=== PATIENT | male | born 1945 ===

== ENCOUNTER 2017-07-07 13:50 | Inpatient (IN) | payer SELFPAY ==
[~2017-07-07] VITALS: Ht 167.6 cm; Wt 65.0 kg
[2017-07-07] MEDS ORDERED: PIPERACIL-TAZO 3.375 GM PREMIX 50 ML IV STA (14:59)
[2017-07-07] MEDS ORDERED: CIPROFLOXACIN 400 MG PREMIX 200 ML IV ONE (15:00)
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
[2017-07-07] MEDS ORDERED: SODIUM CHLORIDE 0.9% FLUSH 10 ML FLUSH IV FLUSH PRN (15:15)
[2017-07-07] MEDS ORDERED: ONDANSETRON HCL 4 MG/2 ML VIAL IVP PRN (15:15)
[2017-07-07] MEDS ORDERED: Custom Consult Pharmacy 1 EA OTHER SCH (15:15)
[2017-07-07] MEDS ORDERED: Vancomycin Consult Pharmacy 1 EA OTHER SCH ×2 (15:15→20:00)
[2017-07-07] MEDS ORDERED: BISACODYL 10 MG SUPP RECTAL PRN (15:15)
[2017-07-07] MEDS ORDERED: ACETAMINOPHEN 325 MG TAB PO PRN ×2 (15:15)
[2017-07-07] MEDS ORDERED: MORPHINE SULFATE 4 MG/ML INJ IV PUSH PRN (15:15)
[2017-07-07] MEDS ORDERED: NALOXONE HCL 0.4 MG/ML AMP IV PUSH PRN (15:15)
[2017-07-07] MEDS ORDERED: LACTULOSE SYRUP 20 GM/30 ML CUP PO PRN (15:15)
[2017-07-07] MEDS ORDERED: ACETAMINOPHEN/HYDROcodone 325 MG/7.5 MG TAB PO PRN (15:15)
[2017-07-07] MEDS ORDERED: cloNIDine HCL 0.1 MG TAB PO PRN (15:15)
[2017-07-07] MEDS ORDERED: SENNOSIDES 8.6 MG TAB PO PRN (15:15)
[2017-07-07] MEDS ORDERED: hydrALAZINE HCL 20 MG/ML VIAL IV PUSH PRN (15:15)
[2017-07-07] MEDS ORDERED: ATOR40TA16 PO (15:34)
[2017-07-07] MEDS ORDERED: LOSA25TA PO (15:34)
[2017-07-07] MEDS ORDERED: FINA5TAB2 PO (15:35)
[2017-07-07] MEDS ORDERED: TAMS5CAP PO (15:35)
[2017-07-07] MEDS ORDERED: ASPI-110 PO (15:36)
[2017-07-07 16:00] VITALS: BP 162/81; PULSE 84; RESP 20; TEMP 98.4; O2SAT 98
[2017-07-07] MEDS ORDERED: VANCOMYCIN INJ 1,250 MG in SODIUM CHLOR 0.9% 250 ML INJ 250 ML IV ONE (17:00)
[2017-07-07 18:01] LABS: BASOPHIL % 0.4 % (0.0-2.0); EOSINOPHIL % 0.4 % (0.0-4.0); HEMATOCRIT 42.3 % (39.0-51.0); HEMOGLOBIN 14.5 GM/DL (13.0-17.0); LYMPH % 21.3 % (9.0-44.0); LYMPHOCYTE # 1.5 TH/MM3 (1.0-4.8); MEAN CELL VOLUME 90.1 FL (80.0-100.0); MEAN CORPUSCULAR HEMOGLOBIN 30.9 PG (27.0-34.0); MEAN CORPUSCULAR HGB CONC 34.2 % (32.0-36.0); MEAN PLATELET VOLUME 8.3 FL (7.0-11.0); MONO % 7.3 % (0.0-8.0); MONOCYTE # 0.5 TH/MM3 (0-0.9); NEUT % 70.6 % (16.0-70.0); PLATELET COUNT 177 TH/MM3 (150-450); RED CELL DISTRIBUTION WIDTH 13.2 % (11.6-17.2)
[2017-07-07 18:04] LABS: INTERNATIONAL NORMALIZED RATIO 0.9 RATIO; PROTHROMBIN TIME - PATIENT 10.3 SEC (9.8-11.6)
[2017-07-07 18:22] LABS: ALBUMIN 3.3 GM/DL (3.4-5.0); ALT (GPT) 28 U/L (12-78); AST (GOT) 16 U/L (15-37); BICARBONATE 27.1 MEQ/L (21.0-32.0); BLOOD UREA NITROGEN 16 MG/DL (7-18); CALCIUM 8.7 MG/DL (8.5-10.1); CHLORIDE 108 MEQ/L (98-107); CREATININE 1.12 MG/DL (0.60-1.30); GLOMERULAR FILTRATION RATE 64 ML/MIN (>89); GLUCOSE,RANDOM 98 MG/DL (74-106); MAGNESIUM 2.3 MG/DL (1.5-2.5); SODIUM (NA) 142 MEQ/L (136-145)
[2017-07-07 18:24] LABS: ALKALINE PHOSPHATASE 75 U/L (45-117); TOTAL BILIRUBIN ADULT 0.3 MG/DL (0.2-1.0); TOTAL PROTEIN 7.7 GM/DL (6.4-8.2)
[2017-07-07] MEDS ORDERED: GADODIAMIDE PF 287 MG/ML 5 ML VIAL (for RAD MRI) IVCONTRAST ONE (19:49)
--- NOTE | 2017-07-07 19:55 | HHI.PR ---
Addendum to Inpatient Note Additional Information Attempted to see patient at 7:54 pm gone for MRI foot. Continue Zosyn IV Continue Vanco IV Consider Vascular consult given PAD and suspicion of osteomyelitis. d/w FACILITIES ADMINISTRATOR Krunal Desir: pt was on Keflex since yday due to chills. Suggested Blood cultures. Given possibility of bacteremia continue Zosyn IV and Vanco IV Loli Driscoll MD Jul 07, 2017 19:55
--- NOTE | 2017-07-07 19:55 | HHI.PR ---
Addendum to Inpatient Note Additional Information Attempted to see patient at 7:54 pm gone for MRI foot. Continue Zosyn IV Continue Vanco IV Consider Vascular consult given PAD and suspicion of osteomyelitis. d/w LEAD ATHLETE Krunal Desir: pt was on Keflex since yday due to chills. Suggested Blood cultures. Given possibility of bacteremia continue Zosyn IV and Vanco IV Loli Driscoll MD Jul 07, 2017 19:55
--- NOTE | 2017-07-07 19:55 | HHI.PR ---
Addendum to Inpatient Note Additional Information Attempted to see patient at 7:54 pm gone for MRI foot. Continue Zosyn IV Continue Vanco IV Consider Vascular consult given PAD and suspicion of osteomyelitis. d/w ASSISTANT CASE MANAGER Krunal Desir: pt was on Keflex since yday due to chills. Suggested Blood cultures. Given possibility of bacteremia continue Zosyn IV and Vanco IV Loli Driscoll MD Jul 07, 2017 19:55
[2017-07-07 20:00] VITALS: PULSE 67
[2017-07-07 20:33] VITALS: BP 117/77; PULSE 63; RESP 16; TEMP 98.2; O2SAT 98
[2017-07-07] MEDS: TAMSULOSIN HCL 0.4 MG CAP PO SCH (20:40)
[2017-07-07] MEDS: SODIUM CHLORIDE 0.9% FLUSH 10 ML FLUSH IV FLUSH SCH (20:40)
[2017-07-07] MEDS: DOCUSATE SODIUM 50 MG/SENNA 8.6 MG TAB PO SCH (20:40)
--- NOTE | 2017-07-07 22:49 | RADRPT ---
EXAM DATE/TIME: 07/07/2017 19:22 [place] COMPARISON: No previous studies available for comparison. INDICATIONS : Cellulitis. Great toe ulcer. CONTRAST: 13 cc Omniscan (gadodiamide) IV MEDICAL HISTORY : Hypertension. SURGICAL HISTORY : Right leg fracture. ENCOUNTER: Subsequent ACUITY: 2 day PAIN SCORE: 3/10 LOCATION: Right foot. TECHNIQUE: Multiplanar, multisequence MRI examination was performed without contrast and after the intravenous a dministration of gadolinium. FINDINGS: There is prominent marrow edema present involving the great toe proximal and distal phalanx worrisome for involvement with osteomyelitis. There are less prominent signal changes involving the other toes , most conspicuously the distal phalanx of the second digit. Great toe is notable for moderate cellul itic change, primarily medial with peripherally enhancing fluid signal medially and inferiorly which may reflect phlegmonous changes in the subcutaneous tissues. CONCLUSION: Extensive great toe cellulitis and phlegmonous changes primarily anterior and medial. Signal changes in the marrow of the great toe phalanges consistent with osteomyelitis. Milder signal change in the s econd toe distal phalanx. Daniel Pope MD on July 07, 2017 at 22:42 Board Certified Radiologist. This report was verified electronically.
[2017-07-07] MEDS: PIPERACIL-TAZO 4.5 GM PREMIX 100 ML IV SCH (23:20)
[2017-07-07 23:34] VITALS: BP 122/68; PULSE 71; RESP 16; TEMP 98.2; O2SAT 96
[2017-07-08] VITALS (7 sets, daily range): BP systolic 114–133; BP diastolic 71–85; PULSE 66–80; RESP 16–20; TEMP 98–98.6; O2SAT 96–98
[2017-07-08] MEDS: PIPERACIL-TAZO 4.5 GM PREMIX 100 ML IV SCH ×3 (05:26→19:28)
[2017-07-08] MEDS ORDERED: VANCOMYCIN INJ 700 MG in SODIUM CHLOR 0.9% 250 ML INJ 250 ML IV SCH (07:00)
[2017-07-08] MEDS: ATORVASTATIN 40 MG TAB PO SCH ×2 (09:00→11:24)
[2017-07-08] MEDS: FINASTERIDE 5 MG TAB PO SCH (09:38)
[2017-07-08] MEDS: DOCUSATE SODIUM 50 MG/SENNA 8.6 MG TAB PO SCH ×2 (09:38→20:43)
[2017-07-08] MEDS: SODIUM CHLORIDE 0.9% FLUSH 10 ML FLUSH IV FLUSH SCH ×2 (09:41→20:43)
[2017-07-08] MEDS: LOSARTAN 25 MG TAB PO SCH (09:41)
[2017-07-08] MEDS: ASPIRIN EC 81 MG TABEC PO SCH (11:23)
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
--- NOTE | 2017-07-08 12:57 | PD.POD.CON ---
Patient Intake Chief Complaint Discoloration of the right hallux Consult Requested by Dr. Quintero Reason for Consult Evaluation and treatment of right hallux toe Primary Care Physician No Primary Care Physician History of Present Illness Patient is a 71-year-old pleasant gentleman from the [facility] who is visiting the area for her wedding. Patient states he has no feeling in his foot from her prior fracture of his leg. Approximately 1 month ago he developed an open draining area which she's been treating topically with antibiotics. Toe became discolored and worse a few days ago and he presented to [facility] for evaluation and treatment. MRI shows osteomyelitic changes of the hallux. Patient has been seen by vascular for possible thrombus and PVD. Coded Allergies: No Known Allergies (Unverified , 07/07/17) Preferred Language to Discuss: [place] Barriers to Learning: None Teaching Method: Discussion Vital Signs Date Time Temp Pulse Resp B/P (MAP) Pulse Ox O2 Delivery O2 Flow Rate FiO2 07/08/17 08:00 66 07/08/17 08:00 98.0 66 20 131/76 (94) 96 07/08/17 05:18 98.4 74 16 120/71 (87) 98 07/07/17 23:34 98.2 71 16 122/68 (86) 96 07/07/17 20:33 98.2 63 16 117/77 (90) 98 07/07/17 20:00 67 07/07/17 16:00 98.4 84 20 162/81 (108) 98 Pain scale used: 0-10 numeric scale Pain score: 0 Medications Current Medications Ciprofloxacin/ Dextrose 200 ml @ 200 mls/hr STAT ONCE IV Last administered on 07/07/17 16:53; Start 07/07/17 at 15:00; Stop 07/07/17 at 15:59; Status DC Piperacillin Sod/ Tazobactam Sod 50 ml @ 100 mls/hr ONCE STAT IV Last administered on 07/07/17 18:26; Start 07/07/17 at 14:59; Stop 07/07/17 at 15 :28; Status DC Pharmacy Profile Note 0 ml @ 0 mls/hr UNSCH OTHER ; Start 07/07/17 at 15:15; Stop 07/07/17 at 20:46; Status DC Pharmacy Profile Note 0 ml @ 0 mls/hr UNSCH OTHER ; Start 07/07/17 at 15:15 Hydralazine HCl (Apresoline Inj) 10 mg Q6H PRN IV PUSH SBP> OR = 180, DBP> OR = 100; Start 07/07/17 at 15:15 Clonidine (Catapres) 0.1 mg Q6H PRN PO SBP> OR = 180, DBP> OR = 100; Start at 15:15 Sodium Chloride (NS Flush) 2 ml UNSCH PRN IV FLUSH FLUSH AFTER USING IV ACCESS ; Start 07/07/17 at 15:15 Sodium Chloride (NS Flush) 2 ml BID IV FLUSH Last administered on 07/08/17 09 :41; Start 07/07/17 at 21:00 Acetaminophen (Tylenol) 650 mg Q4H PRN PO TEMP > 100.4; Start 07/07/17 at 15: 15 Ondansetron HCl (Zofran Inj) 4 mg Q6H PRN IVP NAUSEA OR VOMITING; Start at 15:15 Acetaminophen (Tylenol) 650 mg Q6H PRN PO PAIN SCALE 1 TO 2; Start 07/07/17 at 15:15 Acetaminophen/ Hydrocodone Bitart ([place] 5-325 Mg) 1 tab Q4H PRN PO PAIN SCALE 3 TO 5; Start 07/07/17 at 15:15 Acetaminophen/ Hydrocodone Bitart ([place] 7.5-325 Mg) 1 tab Q4H PRN PO PAIN SCALE 6 TO 10; Start 07/07/17 at 15:15 Morphine Sulfate (Morphine Inj) 2 mg Q3H PRN IV PUSH BREAKTHROUGH PAIN; Start 07/07/17 at 15:15 Naloxone HCl (Narcan Inj) 0.4 mg UNSCH PRN IV PUSH SEE LABEL COMMENTS; Start 07/07/17 at 15:15 Senna/Docusate Sodium (Bindu-Colace) 1 tab BID PO Last administered on 09:38; Start 07/07/17 at 21:00 Sennosides (Senokot) 17.2 mg Q12H PRN PO Moderate constipation; Start at 15:15 Bisacodyl (Dulcolax Supp) 10 mg DAILY PRN RECTAL SEVERE CONSITIPATION; Start 07/07/17 at 15:15 Lactulose (Lactulose Liq) 30 ml DAILY PRN PO SEVERE CONSITIPATION; Start 07/07 at 15:15 Vancomycin HCl 1250 mg/Sodium Chloride 262.5 ml @ 250 mls/hr ONCE ONCE IV Last administered on 07/07/17 19:11; Start 07/07/17 at 17:00; Stop 07/07/17 at 18:02; Status DC Finasteride (Proscar) 5 mg DAILY PO Last administered on 07/08/17 09:38; Start 07/08/17 at 09:00 Tamsulosin HCl (Flomax) 0.4 mg HS PO Last administered on 07/07/17 20:40; Start 07/07/17 at 21:00 Gadodiamide (Omniscan Pf Inj) 13 ml STK-MED ONCE IVCONTRAST Last administered on 07/07/17 19:49; Start 07/07/17 at 19:49; Stop 07/07/17 at 19:53; Status DC Piperacillin Sod/ Tazobactam Sod 100 ml @ 200 mls/hr Q6HR IV Last administered on 07/08/17 11:22; Start 07/08/17 at 00:00 Pharmacy Profile Note 0 ml @ 0 mls/hr UNSCH OTHER ; Start 07/07/17 at 20:00 Vancomycin HCl 700 mg/Sodium Chloride 257 ml @ 250 mls/hr Q12H IV Last administered on 07/08/17 07:01; Start 07/08/17 at 07:00; Stop 07/08/17 at 11 :04; Status DC Miscellaneous Information SPECIFIC LAB TO BE ... ONCE ONCE .XX ; Start at 14:45; Stop 07/09/17 at 14:46 Aspirin (Ecotrin Ec) 81 mg DAILY PO Last administered on 07/08/17 11:23; Start 07/08/17 at 09:00 Atorvastatin Calcium (Lipitor) 40 mg DAILY PO Last administered on 07/08/17 11:24; Start 07/08/17 at 09:00 Losartan Potassium (Cozaar) 25 mg DAILY PO Last administered on 07/08/17 09: 41; Start 07/08/17 at 09:00 Vancomycin HCl 1000 mg/Sodium Chloride 250 ml @ 250 mls/hr Q12H IV ; Start at 15:00 Past, Family & Social History Past Medical History Cardiovascular: REPORTS HX OF: Hypertension Genitourinary - Male: REPORTS HX OF: Benign prost. hyperplasia Past Surgical History Musculoskeletal: REPORTS HX OF: Other musculoskeletal srg (right leg fracture repair) Review of Systems Constitutional: COMPLAINS OF: Good general health Exam-Podiatry Constitutional General appearance: comfortable Nutritional status: normal Orientation: alert and oriented x3 Dermatological Exam Skin Temp - Right: Cool Skin Texture - Right: Abnormal Skin Elasticity - Right: Abnormal Skin Tugor - Right: Abnormal Hair Growth - Right: Absent Pigmentation - Right: Abnormal Skin Temp - Left: Within Normal Limits Skin Texture - Left: Within Normal Limits Skin Elasticity - Left: Within Normal Limits Skin Tugor - Left: Within Normal Limits Hair Growth - Left: Within Normal Limits Pigmentation - Left: Within Normal Limits Ulcers: Location/Measurements Necrosis and cyanosis of the right hallux consistent with early gangrenous changes. Vascular/Lymphatic Exam R Dorsails Pedis: Palpable L Dorsails Pedis: Palpable R Posterior Tibial: Palpable L Posterior Tibial: Palpable Neurologic Exam Present on right: Anesthesia Muscle Strength Dorsiflexion (Right): Normal Plantarflexion (Right): Normal Inversion (Right): Normal Eversion (Right): Normal Digital (Right): Normal Dorsiflexion (Left): Normal Plantarflexion (Left): Normal Inversion (Left): Normal Eversion (Left): Normal Digital (Left): Normal Foot Range of Motion Dorsiflexion (Right): Normal Plantarflexion (Right): Normal Inversion (Right): Normal Eversion (Right): Normal Digital (Right): Normal Dorsiflexion (Left): Normal Plantarflexion (Left): Normal Inversion (Left): Normal Eversion (Left): Normal Digital (Left): Normal Lab and Radiology Results Laboratory Laboratory Tests Test 07/07/17 17:20 White Blood Count 7.0 TH/MM3 Red Blood Count 4.70 MIL/MM3 Hemoglobin 14.5 GM/DL Hematocrit 42.3 % Mean Corpuscular Volume 90.1 FL Mean Corpuscular Hemoglobin 30.9 PG Mean Corpuscular Hemoglobin Concent 34.2 % Red Cell Distribution Width 13.2 % Platelet Count 177 TH/MM3 Mean Platelet Volume 8.3 FL Neutrophils (%) (Auto) 70.6 % Lymphocytes (%) (Auto) 21.3 % Monocytes (%) (Auto) 7.3 % Eosinophils (%) (Auto) 0.4 % Basophils (%) (Auto) 0.4 % Neutrophils # (Auto) 5.0 TH/MM3 Lymphocytes # (Auto) 1.5 TH/MM3 Monocytes # (Auto) 0.5 TH/MM3 Eosinophils # (Auto) 0.0 TH/MM3 Basophils # (Auto) 0.0 TH/MM3 CBC Comment DIFF FINAL Differential Comment Erythrocyte Sedimentation Rate 31 mm/hr Laboratory Tests Test 07/07/17 17:20 Blood Urea Nitrogen 16 MG/DL Creatinine 1.12 MG/DL Random Glucose 98 MG/DL Total Protein 7.7 GM/DL Albumin 3.3 GM/DL Calcium Level 8.7 MG/DL Magnesium Level 2.3 MG/DL Alkaline Phosphatase 75 U/L Aspartate Amino Transf (AST/SGOT) 16 U/L Alanine Aminotransferase (ALT/SGPT) 28 U/L Total Bilirubin 0.3 MG/DL Sodium Level 142 MEQ/L Potassium Level 4.6 MEQ/L Chloride Level 108 MEQ/L Carbon Dioxide Level 27.1 MEQ/L Anion Gap 7 MEQ/L Estimat Glomerular Filtration Rate 64 ML/MIN C-Reactive Protein 1.40 MG/DL Microbiology Date/Time Source Procedure Growth Status 07/07/17 17:30 Blood Peripheral Aerobic Blood Culture - Preliminary NO GROWTH IN 1 DAY Resulted 07/07/17 17:30 Blood Peripheral Anaerobic Blood Culture - Preliminary NO GROWTH IN 1 DAY Resulted 07/07/17 17:20 Blood Peripheral Aerobic Blood Culture - Preliminary NO GROWTH IN 1 DAY Resulted 07/07/17 17:20 Blood Peripheral Anaerobic Blood Culture - Preliminary NO GROWTH IN 1 DAY Resulted Radiology Last Impressions Foot MRI 07/07/17 0000 Signed Impressions: Service Date/Time: Friday, July 07, 2017 19:22 - CONCLUSION: Extensive great toe cellulitis and phlegmonous changes primarily anterior and medial. Signal changes in the marrow of the great toe phalanges consistent with osteomyelitis. Milder signal change in the second toe distal phalanx. Daniel Pope MD Assessment/Plan Problem List: (1) Osteomyelitis of toe of right foot Status: Acute (2) Cellulitis of great toe of right foot Status: Acute Additional Plans & Procedures PLAN: Scheduled the patient for an amputation of the right hallux for tomorrow morning at 7:30. He wishes to proceed with the planned surgery. Preop orders and consent written. Patient is to have Doppler segmentals as ordered by vascular surgery. Discussed patient with Jack Donald DPM Jul 08, 2017 12:57
--- NOTE | 2017-07-08 13:54 | HHI.PR ---
Subjective Remarks Follow-up foot infection. Patient has no new complaints. Discussed with podiatry Objective Vitals Vital Signs Date Time Temp Pulse Resp B/P (MAP) Pulse Ox O2 Delivery O2 Flow Rate FiO2 07/08/17 10:05 21 07/08/17 08:00 66 07/08/17 08:00 98.0 66 20 131/76 (94) 96 07/08/17 05:18 98.4 74 16 120/71 (87) 98 07/07/17 23:34 98.2 71 16 122/68 (86) 96 07/07/17 20:33 98.2 63 16 117/77 (90) 98 07/07/17 20:00 67 07/07/17 16:00 98.4 84 20 162/81 (108) 98 I/O 07/07/17 07/07/17 07/07/17 07/08/17 07/08/17 07/08/17 07:00 15:00 23:00 07:00 15:00 23:00 Intake Total 500 ml 240 ml Output Total 1050 ml Balance 500 ml -810 ml Intake Oral 240 ml IV Total 500 ml Output Urine Total 1050 ml # Bowel Movements 0 Result Diagram: 07/07/17 1720 07/07/17 1720 Imaging Last Impressions Foot MRI 07/07/17 0000 Signed Impressions: Service Date/Time: Friday, July 07, 2017 19:22 - CONCLUSION: Extensive great toe cellulitis and phlegmonous changes primarily anterior and medial. Signal changes in the marrow of the great toe phalanges consistent with osteomyelitis. Milder signal change in the second toe distal phalanx. Daniel Pope MD Objective Remarks GENERAL: This is a well-nourished, well-developed patient, in no apparent distress. SKIN: Warm and dry. Left Flank maculopapular rash present. CARDIOVASCULAR: Regular rate and rhythm without murmurs, gallops, or rubs. RESPIRATORY: Clear to auscultation. Breath sounds equal bilaterally. No wheezes , rales, or rhonchi. GASTROINTESTINAL: Abdomen soft, non-tender, nondistended. Bowel sounds active 4. No guarding. MUSCULOSKELETAL: Extremities without clubbing, cyanosis. Right great toes edema , erythema, malodorous drainage. Right foot edema +1, erythema present mid foot. Pulses palpable right popliteal right femoral, faint right foot DP. Pulses palpable DP and TP left foot. NEUROLOGICAL: Awake and alert. Cranial nerves II through XII intact. Motor and sensory grossly within normal limits. Normal speech. A/P Problem List: (1) Cellulitis of right foot ICD Code: L03.115 - Cellulitis of right lower limb Status: Acute (2) Cellulitis of great toe of right foot ICD Code: L03.031 - Cellulitis of right toe Status: Acute (3) HTN (hypertension) ICD Code: I10 - Essential (primary) hypertension Status: Chronic (4) HLD (hyperlipidemia) ICD Code: E78.5 - Hyperlipidemia, unspecified Status: Chronic (5) BPH (benign prostatic hyperplasia) ICD Code: N40.0 - Benign prostatic hyperplasia without lower urinary tract symptoms Status: Chronic Assessment and Plan Patient is a 71 y/o male with PMHX of HTN, HLD, BPH who came in as direct admission for Right Toe/ Right foot Cellulitis. Right Foot, Right Hallux/ Great Toe Cellulitis, Abscess and OM of first and second metatarsals with failed outpatient therapy. Sepsis suspect - Blood Cutures NGTD - ct IV antibiotics Zosyn and vancomycin IV - Monitor labs - Pain management with Lortab and IV morphine - Consulted infectious disease and podiatry for surgery pending vascular eval HTN, chronic HLD, chronic -Continue home meds losartan 25 mg daily, atorvastatin 40 mg daily - Monitor BP trend BPH, chronic -Continue home medication finasteride, Flomax DVT prop SCD hold pharmacological prophylaxis for surgical intervention in the morning Pancho Quintero MD Jul 08, 2017 13:54
--- NOTE | 2017-07-08 14:43 | RADRPT ---
EXAM DATE/TIME: 07/08/2017 00:00 [place] COMPARISON: No previous studies available for comparison. INDICATIONS : Right foot cellulitis TECHNIQUE: Four-cuff ankle and brachial pressures were obtained. Pulse cuff waveform tracings of the ankles were recorded, and ankle-brachial indices were calculated. PRESSURES (mmHg): Brachial (arm): Right 110 Left IV SITE Ankle: Right 98 Left 153 JUAN: Right 0.89 Left 113 TBI: Right 0.82 Left 1.03 PULSED CUFF WAVEFORMS: Demonstrate normal amplitude bilaterally. CONCLUSION: 1. Mild claudication range right lower extremity ABIs. Dimitri Melissa MD on July 08, 2017 at 14:24 Board Certified Radiologist. This report was verified electronically.
--- NOTE | 2017-07-08 14:51 | EKG ---
Date Performed: 07/07/2017 Time Performed: 17:09:37 PTAGE: 71 years EKG: Sinus rhythm NORMAL ECG NO PREVIOUS TRACING DOCTOR: Ada Amaya Interpretating Date/Time 07/08/2017 14:46:02
--- NOTE | 2017-07-08 14:51 | EKG ---
Date Performed: 07/07/2017 Time Performed: 17:09:37 PTAGE: 71 years EKG: Sinus rhythm NORMAL ECG NO PREVIOUS TRACING DOCTOR: Ada Amaya Interpretating Date/Time 07/08/2017 14:46:02
--- NOTE | 2017-07-08 14:51 | EKG ---
Date Performed: 07/07/2017 Time Performed: 17:09:37 PTAGE: 71 years EKG: Sinus rhythm NORMAL ECG NO PREVIOUS TRACING DOCTOR: Ada Amaya Interpretating Date/Time 07/08/2017 14:46:02
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
[2017-07-08] MEDS: VANCOMYCIN 1,000 MG/NS 250 ML IV SCH ×2 (15:17)
--- NOTE | 2017-07-08 16:57 | RADRPT ---
EXAM DATE/TIME: 07/08/2017 16:01 [facility] COMPARISON: No previous studies available for comparison. INDICATIONS : Evaluate for pneumonia, pneumothorax, or communicable disease. Pre op foot surgery. MEDICAL HISTORY : None. SURGICAL HISTORY : None. ENCOUNTER: Initial ACUITY: 1 day PAIN SCORE: 0/10 LOCATION: Bilateral chest FINDINGS: The heart is at the upper limits of normal in size. The lungs appear clear. The osseous structures ar e grossly intact. CONCLUSION: 1. No acute cardiopulmonary findings. Amarjit Qureshi MD on July 08, 2017 at 16:51 Board Certified Radiologist. This report was verified electronically.
[2017-07-08 19:46] LABS: PROTHROMBIN TIME - PATIENT 10.7 SEC (9.8-11.6)
[2017-07-08] MEDS: TAMSULOSIN HCL 0.4 MG CAP PO SCH (20:43)
[2017-07-08] MEDS: ACETAMINOPHEN/HYDROcodone 325 MG/5 MG TAB PO PRN (22:37)
[2017-07-09] VITALS (9 sets, daily range): BP systolic 108–130; BP diastolic 60–77; PULSE 57–80; RESP 16–20; TEMP 97.6–98.5; O2SAT 94–97
[2017-07-09] MEDS: PIPERACIL-TAZO 4.5 GM PREMIX 100 ML IV SCH ×4 (00:08→17:25)
[2017-07-09] MEDS: ACETAMINOPHEN/HYDROcodone 325 MG/5 MG TAB PO PRN (00:08)
[2017-07-09] MEDS: VANCOMYCIN 1,000 MG/NS 250 ML IV SCH ×4 (03:59→16:00)
[2017-07-09] MEDS ORDERED: INSULIN HUMAN REGULAR 1,000 UNITS/10 ML VIAL SQ PRN (04:30)
[2017-07-09] MEDS ORDERED: METOPROLOL TARTRATE 25 MG TAB PO PRN (04:30)
[2017-07-09] MEDS ORDERED: CHLORHEXIDINE GLUCONATE 2 % 1 PACK (2 CLOTHS) TOPICAL PRN (04:30)
[2017-07-09] MEDS ORDERED: SODIUM CHLORID 0.9% 500 ML IV PRN (04:30)
[2017-07-09] MEDS ORDERED: LACTATED RINGER'S 1000 ML IV PRN (04:30)
[2017-07-09] MEDS ORDERED: POVIDONE IODINE 5% (ANTISEPSIS KIT) 4 APPLICATIONS EACH NARE PRN (04:30)
[2017-07-09] MEDS ORDERED: LIDOCAINE HCL 1% 50 ML VIAL ONE (07:11)
[2017-07-09] MEDS ORDERED: BUPIVACAINE HCL PF 0.5% 30 ML VIAL ONE (07:11)
[2017-07-09] MEDS ORDERED: DO NOT ADM ANY ANTICOAGULANT DRUGS PRN (08:23)
[2017-07-09] MEDS ORDERED: SODIUM CHLORIDE 0.9% FLUSH 10 ML FLUSH IV FLUSH PRN (08:30)
[2017-07-09] MEDS ORDERED: Post-op Orders (for Pharmacy) MISC XX ONE (08:30)
[2017-07-09] MEDS ORDERED: NALOXONE HCL 0.4 MG/ML AMP IV PUSH PRN (08:30)
--- NOTE | 2017-07-09 08:32 | PD.OP ---
Operative Report Date of Surgery: Jul 09, 2017 Preoperative Diagnosis: (1) Osteomyelitis of toe of right foot Right hallux Postoperative Diagnosis: (1) Osteomyelitis of toe of right foot Right hallux Procedure: Amputation of right hallux and first metatarsal head Anesthesia: General inhalation Surgeon: Jack Ramírez DPM Senior Compensation Analyst(s): None Operation and Findings: Patient was brought to the operating room placed on the operating table in a supine position. A pneumatic ankle cuff was placed around the patient's right ankle after adequate web roll padding. Patient was given general relation anesthesia and the right foot was prepped and draped in the usual sterile manner. After the appropriate timeout was performed and the patient was correctly identified the pneumatic ankle cuff was inflated to 250 mmHg. Total cuff time was 26 minutes. Attention was directed to the right foot which is noted to have gangrenous changes of the right hallux with osteomyelitis on MRI. At this time a 2 fishmouth incisions were made dorsally and plantar at the level of the metatarsal phalangeal joint. Using sharp dissection the hallux was disarticulated at the MPJ and delivered from the wound. The head of the first metatarsal was then freed up and using an oscillating saw the distal portion of the first metatarsal head of the right foot was excised for adequate closure. There is flushed with copious amounts of sterile saline. Subcutaneous tissue was reapproximated and closed with 3-0 Vicryl. Skin edges reapproximated and closed with 3-0 Prolene. Good closure was noted. Steri- Strips were placed across the incision sites. 10 cc of 0.5% Marcaine was infiltrated for postoperative analgesia. Sponge and instrument counts were noted to be correct. The hallux was sent for pathology with the first metatarsal head. Patient tolerated the procedures and anesthesia well and left the OR to PACU in apparent satisfactory condition with all vital signs stable and vascular status intact to the right foot. Jack Ramírez DPM Jul 09, 2017 08:32
[2017-07-09] MEDS ORDERED: HYDROmorphone HCL PF 1 MG/ML VIAL IV PUSH PRN (09:00)
[2017-07-09] MEDS ORDERED: IBUPROFEN 400 MG TAB PO PRN (09:00)
[2017-07-09] MEDS ORDERED: HYDROmorphone HCL 2 MG TAB PO PRN (09:00)
--- NOTE | 2017-07-09 09:48 | RADRPT ---
EXAM DATE/TIME: 07/09/2017 08:37 [facility] COMPARISON: MRI FOOT RIGHT W & W/O CONTRAST, July 07, 2017, 19:22. INDICATIONS : Post operative for amputation. MEDICAL HISTORY : None. SURGICAL HISTORY : None. ENCOUNTER: Initial ACUITY: 1 day PAIN SCORE: Non-responsive. LOCATION: Right foot. FINDINGS: Postoperative changes from amputation of the 1st digit at the level of the diametaphysis of the 1st m etatarsus. There is a well-corticated oval ossific density adjacent to the indication site which marina sures 9 mm which is of uncertain significance, this probably represent a retained sesamoid. No soft tissue gas or radiopaque foreign bodies. Portions of the distal leg are included in lateral projecti on demonstrate coarsened trabecula and deformity of the distal tibia and fibula and probable fusion o f the tibiotalar joint. CONCLUSION: Postoperative 1st digit partial amputation. Meng Mena MD on July 09, 2017 at 9:43 Board Certified Radiologist. This report was verified electronically.
--- NOTE | 2017-07-09 09:48 | RADRPT ---
EXAM DATE/TIME: 07/09/2017 08:37 [facility] COMPARISON: MRI FOOT RIGHT W & W/O CONTRAST, July 07, 2017, 19:22. INDICATIONS : Post operative for amputation. MEDICAL HISTORY : None. SURGICAL HISTORY : None. ENCOUNTER: Initial ACUITY: 1 day PAIN SCORE: Non-responsive. LOCATION: Right foot. FINDINGS: Postoperative changes from amputation of the 1st digit at the level of the diametaphysis of the 1st m etatarsus. There is a well-corticated oval ossific density adjacent to the indication site which marina sures 9 mm which is of uncertain significance, this probably represent a retained sesamoid. No soft tissue gas or radiopaque foreign bodies. Portions of the distal leg are included in lateral projecti on demonstrate coarsened trabecula and deformity of the distal tibia and fibula and probable fusion o f the tibiotalar joint. CONCLUSION: Postoperative 1st digit partial amputation. eMng Mena MD on July 09, 2017 at 9:43 Board Certified Radiologist. This report was verified electronically.
[2017-07-09] MEDS: SODIUM CHLORIDE 0.9% FLUSH 10 ML FLUSH IV FLUSH SCH ×2 (10:26→21:00)
[2017-07-09] MEDS: DOCUSATE SODIUM 50 MG/SENNA 8.6 MG TAB PO SCH ×2 (10:27→21:00)
[2017-07-09] MEDS: ASPIRIN EC 81 MG TABEC PO SCH (10:27)
[2017-07-09] MEDS: ATORVASTATIN 40 MG TAB PO SCH (10:27)
[2017-07-09] MEDS: FINASTERIDE 5 MG TAB PO SCH (10:27)
[2017-07-09] MEDS: LOSARTAN 25 MG TAB PO SCH (10:27)
--- NOTE | 2017-07-09 11:41 | HHI.PR ---
Subjective Remarks Follow-up foot infection. Tolerated surgery. Denies pain. Discussed with RN and ID Objective Vitals Vital Signs Date Time Temp Pulse Resp B/P (MAP) Pulse Ox O2 Delivery O2 Flow Rate FiO2 07/09/17 09:30 62 07/09/17 09:00 97.8 70 14 117/70 (86) 99 Room Air 07/09/17 08:45 68 20 112/66 (81) 98 07/09/17 08:30 57 8 101/60 (74) 96 Nasal Cannula 2 07/09/17 08:25 97.6 61 8 97/61 (73) 97 Nasal Cannula 2 07/09/17 08:00 97.7 69 20 114/68 (83) 96 07/09/17 04:40 97.8 62 16 108/65 (79) 94 07/09/17 04:00 Room Air 07/08/17 23:25 Room Air 07/08/17 23:25 98.4 77 16 114/74 (87) 97 07/08/17 20:00 77 07/08/17 19:47 Room Air 07/08/17 19:47 98.6 73 16 127/85 (99) 96 07/08/17 16:00 98.6 80 20 126/74 (91) 96 07/08/17 12:00 98.5 76 20 133/82 (99) 96 I/O 07/08/17 07/08/17 07/08/17 07/09/17 07/09/17 07/09/17 07:00 15:00 23:00 07:00 15:00 23:00 Intake Total 240 ml 480 ml 1050 ml 500 ml Output Total 1050 ml 500 ml 10 ml Balance -810 ml 480 ml 550 ml 490 ml Intake Oral 240 ml 480 ml 600 ml IV Total 450 ml 500 ml Output Urine Total 1050 ml 500 ml Estimated Blood Loss 10 ml # Voids 3 # Bowel Movements 0 1 1 Result Diagram: 07/07/17 1720 07/07/17 172 Imaging Last Impressions Foot X-Ray 07/09/17 0000 Signed Impressions: Service Date/Time: Sunday, July 09, 2017 08:37 - CONCLUSION: Postoperative 1st digit partial amputation. Meng Mena MD Chest X-Ray 07/08/17 0000 Signed Impressions: Service Date/Time: June 16:01 - CONCLUSION: 1. No acute cardiopulmonary findings. Amarjit Qureshi MD Foot MRI 07/07/17 0000 Signed Impressions: Service Date/Time: Friday, July 07, 2017 19:22 - CONCLUSION: Extensive great toe cellulitis and phlegmonous changes primarily anterior and medial. Signal changes in the marrow of the great toe phalanges consistent with osteomyelitis. Milder signal change in the second toe distal phalanx. Daniel Pope MD Objective Remarks GENERAL: This is a well-nourished, well-developed patient, in no apparent distress. SKIN: Warm and dry. Left Flank maculopapular rash present. CARDIOVASCULAR: Regular rate and rhythm without murmurs, gallops, or rubs. RESPIRATORY: Clear to auscultation. Breath sounds equal bilaterally. No wheezes , rales, or rhonchi. GASTROINTESTINAL: Abdomen soft, non-tender, nondistended. Bowel sounds active 4. No guarding. MUSCULOSKELETAL: Extremities without clubbing, cyanosis. Right foot with dry dressing NEUROLOGICAL: Awake and alert. Cranial nerves II through XII intact. Motor and sensory grossly within normal limits. Normal speech. Procedures Amputation of the right great toe and first metatarsal A/P Problem List: (1) Cellulitis of right foot ICD Code: L03.115 - Cellulitis of right lower limb Status: Acute (2) Cellulitis of great toe of right foot ICD Code: L03.031 - Cellulitis of right toe Status: Acute (3) HTN (hypertension) ICD Code: I10 - Essential (primary) hypertension Status: Chronic (4) HLD (hyperlipidemia) ICD Code: E78.5 - Hyperlipidemia, unspecified Status: Chronic (5) BPH (benign prostatic hyperplasia) ICD Code: N40.0 - Benign prostatic hyperplasia without lower urinary tract symptoms Status: Chronic Assessment and Plan Patient is a 71 y/o male with PMHX of HTN, HLD, BPH who came in as direct admission for Right Toe/ Right foot Cellulitis. Right Foot, Right Hallux/ Great Toe Cellulitis, Abscess and OM of first and second metatarsals with failed outpatient therapy. Sepsis suspect - Blood Cutures NGTD - ct IV antibiotics Zosyn and vancomycin IV - Monitor labs - Pain management with Lortab and IV morphine - Status post amputation of the right great toe and first metatarsal. Postoperative wound care. Follow up pathology HTN, chronic HLD, chronic -Continue home meds losartan 25 mg daily, atorvastatin 40 mg daily - Monitor BP trend BPH, chronic -Continue home medication finasteride, Flomax DVT prop SCD start pharmacological prophylaxis in the morning if stable Pancho Quintero MD Jul 09, 2017 11:41
[2017-07-09] MEDS ORDERED: LIDOCAINE HCL 1% PF 5 ML AMPULE OTHER ONE (12:00)
[2017-07-09] MEDS ORDERED: PHENYLEPH/NS 1000 MCG/10 ML SYR IV ONE (12:00)
[2017-07-09] MEDS ORDERED: MIDAZOLAM HCL 2 MG/2 ML VIAL IV ONE (12:00)
[2017-07-09] MEDS ORDERED: PROPOFOL 200 MG/20 ML AMP IV ONE (12:00)
[2017-07-09] MEDS ORDERED: VECURONIUM BROMIDE 20 MG VIAL IV ONE (12:00)
[2017-07-09] MEDS ORDERED: PHARMACY ORDERED LAB ONE (14:45)
--- NOTE | 2017-07-09 15:59 | HHI.PR ---
Addendum to Inpatient Note Addendum Reason: Additional Documentation Additional Information d/w : toe resected beyond margin of infection with no suspicion of residual infection. Ok to treat with oral. Recommend Augmentin 500 or 875 mg po tid for 10 additional days. to examine wound in am. Will sign off please call back if any change in clinical condition or questions or path positive for osteomyelitis on outer margin close to the foot. Loli Driscoll MD Jul 09, 2017 15:59
[2017-07-09] MEDS: TAMSULOSIN HCL 0.4 MG CAP PO SCH (21:21)
[2017-07-10] VITALS (8 sets, daily range): BP systolic 124–154; BP diastolic 67–98; PULSE 65–101; RESP 16–20; TEMP 97.6–99.3; O2SAT 95–97
[2017-07-10] MEDS: PIPERACIL-TAZO 4.5 GM PREMIX 100 ML IV SCH ×4 (00:07→17:13)
[2017-07-10] MEDS: VANCOMYCIN 1,000 MG/NS 250 ML IV SCH ×4 (02:36→15:42)
[2017-07-10] MEDS: ACETAMINOPHEN/HYDROcodone 325 MG/5 MG TAB PO PRN ×3 (04:45→20:28)
[2017-07-10] MEDS: DOCUSATE SODIUM 50 MG/SENNA 8.6 MG TAB PO SCH (09:00)
[2017-07-10] MEDS: ASPIRIN EC 81 MG TABEC PO SCH (09:39)
[2017-07-10] MEDS: SODIUM CHLORIDE 0.9% FLUSH 10 ML FLUSH IV FLUSH SCH ×2 (09:39→20:27)
[2017-07-10] MEDS: FINASTERIDE 5 MG TAB PO SCH (09:40)
[2017-07-10] MEDS: LOSARTAN 25 MG TAB PO SCH (09:41)
[2017-07-10] MEDS: ATORVASTATIN 40 MG TAB PO SCH (09:41)
--- NOTE | 2017-07-10 10:29 | PD.POD ---
Subjective Podiatric Problems Status post right hallux amputation Pain scale used: 0-10 numeric scale Pain score: 1 Remarks 71-year-old male visiting from the [facility] who developed a wound and cyanosis of the right hallux. MRI showed osteomyelitic changes. He underwent an amputation of the right hallux and partial first met head for clear margins. Patient is without complaints. Has only minimal discomfort. Past Med/Surg/Social History Past Medical History PFS Reviewed: Yes Cardiovascular: REPORTS HX OF: Hypertension Genitourinary - male: REPORTS HX OF: Benign prost. hyperplasia Past Surgical History Musculoskeletal: REPORTS HX OF: Other musculoskeletal srg (right leg fracture repair) Social History Smoking Status: Never Smoker Review of Systems Notes No changes in his 14 point review of systems exam since his original visit with the exception of the surgery Constitutional: COMPLAINS OF: Good general health Cardiovascular: COMPLAINS OF: Hx hypertension Objective Vital Signs Vital Signs Date Time Temp Pulse Resp B/P (MAP) Pulse Ox O2 Delivery O2 Flow Rate FiO2 07/10/17 08:00 97.9 68 19 124/69 (87) 97 07/10/17 04:32 99.3 73 16 129/67 (87) 95 07/09/17 23:38 98.4 80 16 128/60 (82) 95 07/09/17 21:25 Room Air 07/09/17 20:42 97.6 63 16 130/77 (94) 97 07/09/17 20:00 57 07/09/17 17:57 95 21 07/09/17 16:00 Room Air 07/09/17 16:00 98.5 68 20 126/66 (86) 94 07/09/17 12:00 97.7 77 20 121/72 (88) 95 07/09/17 12:00 Room Air Coded Allergies: No Known Allergies (Unverified , 07/07/17) Medications and IVs Current Medications Ciprofloxacin/ Dextrose 200 ml @ 200 mls/hr STAT ONCE IV Last administered on 07/07/17 16:53; Start 07/07/17 at 15:00; Stop 07/07/17 at 15:59; Status DC Piperacillin Sod/ Tazobactam Sod 50 ml @ 100 mls/hr ONCE STAT IV Last administered on 07/07/17 18:26; Start 07/07/17 at 14:59; Stop 07/07/17 at 15 :28; Status DC Pharmacy Profile Note 0 ml @ 0 mls/hr UNSCH OTHER ; Start 07/07/17 at 15:15; Stop 07/07/17 at 20:46; Status DC Pharmacy Profile Note 0 ml @ 0 mls/hr UNSCH OTHER ; Start 07/07/17 at 15:15 Hydralazine HCl (Apresoline Inj) 10 mg Q6H PRN IV PUSH SBP> OR = 180, DBP> OR = 100; Start 07/07/17 at 15:15 Clonidine (Catapres) 0.1 mg Q6H PRN PO SBP> OR = 180, DBP> OR = 100; Start at 15:15 Sodium Chloride (NS Flush) 2 ml UNSCH PRN IV FLUSH FLUSH AFTER USING IV ACCESS ; Start 07/07/17 at 15:15; Stop 07/09/17 at 08:34; Status DC Sodium Chloride (NS Flush) 2 ml BID IV FLUSH Last administered on 07/08/17t 20 :43; Start 07/07/17 at 21:00; Stop 07/09/17 at 08:34; Status DC Acetaminophen (Tylenol) 650 mg Q4H PRN PO TEMP > 100.4; Start 07/07/17 at 15: 15 Ondansetron HCl (Zofran Inj) 4 mg Q6H PRN IVP NAUSEA OR VOMITING; Start at 15:15 Acetaminophen (Tylenol) 650 mg Q6H PRN PO PAIN SCALE 1 TO 2; Start 07/07/17 at 15:15; Stop 07/09/17 at 08:38; Status DC Acetaminophen/ Hydrocodone Bitart ([place] 5-325 Mg) 1 tab Q4H PRN PO PAIN SCALE 3 TO 5 Last administered on 07/09/17 00:08; Start 07/07/17 at 15:15; Stop 07/09/17 at 08:32; Status DC Acetaminophen/ Hydrocodone Bitart ([place] 7.5-325 Mg) 1 tab Q4H PRN PO PAIN SCALE 6 TO 10; Start 07/07/17 at 15:15; Stop 07/09/17 at 08:37; Status DC Morphine Sulfate (Morphine Inj) 2 mg Q3H PRN IV PUSH BREAKTHROUGH PAIN; Start 07/07/17 at 15:15; Stop 07/09/17 at 08:39; Status DC Naloxone HCl (Narcan Inj) 0.4 mg UNSCH PRN IV PUSH SEE LABEL COMMENTS; Start 07/07/17 at 15:15; Stop 07/09/17 at 08:33; Status DC Senna/Docusate Sodium (Bindu-Colace) 1 tab BID PO Last administered on 10:27; Start 07/07/17 at 21:00 Sennosides (Senokot) 17.2 mg Q12H PRN PO Moderate constipation; Start at 15:15 Bisacodyl (Dulcolax Supp) 10 mg DAILY PRN RECTAL SEVERE CONSITIPATION; Start 07/07/17 at 15:15 Lactulose (Lactulose Liq) 30 ml DAILY PRN PO SEVERE CONSITIPATION; Start 07/07 at 15:15 Vancomycin HCl 1250 mg/Sodium Chloride 262.5 ml @ 250 mls/hr ONCE ONCE IV Last administered on 07/07/17 19:11; Start 07/07/17 at 17:00; Stop 07/07/17 at 18:02; Status DC Finasteride (Proscar) 5 mg DAILY PO Last administered on 07/10/17 09:40; Start 07/08/17 at 09:00 Tamsulosin HCl (Flomax) 0.4 mg HS PO Last administered on 07/09/17 21:21; Start 07/07/17 at 21:00 Gadodiamide (Omniscan Pf Inj) 13 ml STK-MED ONCE IVCONTRAST Last administered on 07/07/17 19:49; Start 07/07/17 at 19:49; Stop 07/07/17 at 19:53; Status DC Piperacillin Sod/ Tazobactam Sod 100 ml @ 200 mls/hr Q6HR IV Last administered on 07/10/17 05:14; Start 07/08/17 at 00:00 Pharmacy Profile Note 0 ml @ 0 mls/hr UNSCH OTHER ; Start 07/07/17 at 20:00 Vancomycin HCl 700 mg/Sodium Chloride 257 ml @ 250 mls/hr Q12H IV Last administered on 07/08/17 07:01; Start 07/08/17 at 07:00; Stop 07/08/17 at 11 :04; Status DC Miscellaneous Information SPECIFIC LAB TO BE ... ONCE ONCE .XX ; Start at 14:45; Stop 07/09/17 at 14:46; Status DC Aspirin (Ecotrin Ec) 81 mg DAILY PO Last administered on 07/10/17 09:39; Start 07/08/17 at 09:00 Atorvastatin Calcium (Lipitor) 40 mg DAILY PO Last administered on 07/10/17 09:41; Start 07/08/17 at 09:00 Losartan Potassium (Cozaar) 25 mg DAILY PO Last administered on 07/10/17 09: 41; Start 07/08/17 at 09:00 Vancomycin HCl 1000 mg/Sodium Chloride 250 ml @ 250 mls/hr Q12H IV Last administered on 07/10/17 02:36; Start 07/08/17 at 15:00 Lactated Ringer's 1,000 ml @ 30 mls/hr Q24H PRN IV SEE LABEL COMMENTS Last administered on 07/09/17 07:00; Start 07/09/17 at 04:30; Stop 07/12/17 at 04 :29 Sodium Chloride 500 ml @ 30 mls/hr [id number] PRN IV SEE LABEL COMMENTS; Start at 04:30; Stop 07/12/17 at 04:29 Metoprolol Tartrate (Lopressor) 25 mg WEIGHT LOSS COUNSELOR PRN PO SEE LABEL COMMENTS; Start 07/09/17 at 04:30; Stop 07/12/17 at 04:29 Povidone Iodine (Betadine 5% Antisepsis Kit) 1 applic WEIGHT LOSS COUNSELOR PRN EACH NARE SEE LABEL COMMENTS; Start 07/09/17 at 04:30; Stop 07/12/17 at 04:29 Chlorhexidine Gluconate (Chlorhexidine 2% Cloth) 3 pack WEIGHT LOSS COUNSELOR PRN TOPICAL SEE LABEL COMMENTS; Start 07/09/17 at 04:30; Stop 07/12/17 at 04:29 Insulin Human Regular (NovoLIN R INJ) See Protocol Table ... WEIGHT LOSS COUNSELOR PRN SQ SEE PROTOCOL TABLE; Start 07/09/17 at 04:30; Stop 07/12/17 at 04:29 Bupivacaine HCl (Marcaine Pf 0.5% Inj) 30 ml STK-MED ONCE .ROUTE Last administered on 07/09/17 07:46; Start 07/09/17 at 07:11; Stop 07/09/17 at 07 :12; Status DC Lidocaine HCl (Xylocaine 1% Inj (50 ml)) 50 ml STK-MED ONCE .ROUTE ; Start at 07:11; Stop 07/09/17 at 07:12; Status DC Sodium Chloride (NS Flush) 2 ml UNSCH PRN IV FLUSH FLUSH AFTER USING IV ACCESS ; Start 07/09/17 at 08:30 Sodium Chloride (NS Flush) 2 ml BID IV FLUSH Last administered on 07/10/17 09 :39; Start 07/09/17 at 09:00 Miscellaneous Information (Post-op Orders (for Pharmacy)) STAT ONCE XX ; Start 07/09/17 at 08:30; Stop 07/09/17 at 08:37; Status DC Ibuprofen (Motrin) 400 mg Q6H PRN PO PAIN SCALE 1 TO 2; Start 07/09/17 at 09: 00 Acetaminophen/ Hydrocodone Bitart ([place] 5-325 Mg) 1 tab Q4H PRN PO PAIN SCALE 3 TO 5 Last administered on 07/10/17 04:45; Start 07/09/17 at 09:00 Hydromorphone HCl (Dilaudid Pf Inj) 1 mg Q3H PRN IV PUSH BREAKTHROUGH PAIN; Start 07/09/17 at 09:00 Hydromorphone HCl (Dilaudid) 2 mg Q4H PRN PO PAIN SCALE 6 TO 10; Start at 09:00 Naloxone HCl (Narcan Inj) 0.4 mg UNSCH PRN IV PUSH SEE LABEL COMMENTS; Start 07/09/17 at 08:30 Miscellaneous Information ALL NURSING DEPARTME... UNSCH PRN .XX SEE LABEL COMMENTS; Start 07/09/17 at 08:23; Stop 07/10/17 at 08:22; Status DC Other Results Microbiology Date/Time Source Procedure Growth Status 07/07/17 17:30 Blood Peripheral Aerobic Blood Culture - Preliminary NO GROWTH IN 2 DAYS Resulted 07/07/17 17:30 Blood Peripheral Anaerobic Blood Culture - Preliminary NO GROWTH IN 2 DAYS Resulted 07/07/17 17:20 Blood Peripheral Aerobic Blood Culture - Preliminary NO GROWTH IN 2 DAYS Resulted 07/07/17 17:20 Blood Peripheral Anaerobic Blood Culture - Preliminary NO GROWTH IN 2 DAYS Resulted Exam-Podiatry Constitutional General appearance: comfortable Nutritional status: normal Orientation: alert and oriented x3 Dermatological Exam Skin Temp - Right: Within Normal Limits Skin Texture - Right: Within Normal Limits Skin Elasticity - Right: Within Normal Limits Skin Tugor - Right: Within Normal Limits Hair Growth - Right: Within Normal Limits Pigmentation - Right: Within Normal Limits Skin Temp - Left: Within Normal Limits Skin Texture - Left: Within Normal Limits Skin Elasticity - Left: Within Normal Limits Skin Tugor - Left: Within Normal Limits Hair Growth - Left: Within Normal Limits Pigmentation - Left: Within Normal Limits Other: Scars, Surgery,Injury Dressing to right foot is intact dry. Minimal bleeding seen on the bandage. Vascular/Lymphatic Exam R Dorsails Pedis: Palpable L Dorsails Pedis: Palpable R Posterior Tibial: Palpable L Posterior Tibial: Palpable Neurologic Exam Present on right: Paraesthesia Musculoskeletal Exam Details Right hallux amputation Muscle Strength Dorsiflexion (Right): Normal Plantarflexion (Right): Normal Inversion (Right): Normal Eversion (Right): Normal Digital (Right): Normal Dorsiflexion (Left): Normal Plantarflexion (Left): Normal Inversion (Left): Normal Eversion (Left): Normal Digital (Left): Normal Foot Range of Motion Dorsiflexion (Right): Normal Plantarflexion (Right): Normal Inversion (Right): Normal Eversion (Right): Normal Digital (Right): Normal Dorsiflexion (Left): Normal Plantarflexion (Left): Normal Inversion (Left): Normal Eversion (Left): Normal Digital (Left): Normal Assessment & Plan Diagnosis: (1) Osteomyelitis of toe of right foot ICD Codes: M86.9 - Osteomyelitis, unspecified Status: Resolved (2) Cellulitis of great toe of right foot ICD Codes: L03.031 - Cellulitis of right toe Status: Resolved A/P PLAN: Patient may get out of bed to the bathroom the postop shoe. I will change his dressing tomorrow. If incision site looks good we can be discharged tomorrow or Wednesday when cleared by medicine. Discharge on oral antibiotics of Augmentin per ID. Follow-up in my office next week. Patient states she will stay in [facility] for the next few weeks for postoperative care. Jack Ramírez DPM Jul 10, 2017 10:29
--- NOTE | 2017-07-10 10:29 | PD.POD ---
Subjective Podiatric Problems Status post right hallux amputation Pain scale used: 0-10 numeric scale Pain score: 1 Remarks 71-year-old male visiting from the [facility] who developed a wound and cyanosis of the right hallux. MRI showed osteomyelitic changes. He underwent an amputation of the right hallux and partial first met head for clear margins. Patient is without complaints. Has only minimal discomfort. Past Med/Surg/Social History Past Medical History PFS Reviewed: Yes Cardiovascular: REPORTS HX OF: Hypertension Genitourinary - male: REPORTS HX OF: Benign prost. hyperplasia Past Surgical History Musculoskeletal: REPORTS HX OF: Other musculoskeletal srg (right leg fracture repair) Social History Smoking Status: Never Smoker Review of Systems Notes No changes in his 14 point review of systems exam since his original visit with the exception of the surgery Constitutional: COMPLAINS OF: Good general health Cardiovascular: COMPLAINS OF: Hx hypertension Objective Vital Signs Vital Signs Date Time Temp Pulse Resp B/P (MAP) Pulse Ox O2 Delivery O2 Flow Rate FiO2 07/10/17 08:00 97.9 68 19 124/69 (87) 97 07/10/17 04:32 99.3 73 16 129/67 (87) 95 07/09/17 23:38 98.4 80 16 128/60 (82) 95 07/09/17 21:25 Room Air 07/09/17 20:42 97.6 63 16 130/77 (94) 97 07/09/17 20:00 57 07/09/17 17:57 95 21 07/09/17 16:00 Room Air 07/09/17 16:00 98.5 68 20 126/66 (86) 94 07/09/17 12:00 97.7 77 20 121/72 (88) 95 07/09/17 12:00 Room Air Coded Allergies: No Known Allergies (Unverified , 07/07/17) Medications and IVs Current Medications Ciprofloxacin/ Dextrose 200 ml @ 200 mls/hr STAT ONCE IV Last administered on 07/07/17 16:53; Start 07/07/17 at 15:00; Stop 07/07/17 at 15:59; Status DC Piperacillin Sod/ Tazobactam Sod 50 ml @ 100 mls/hr ONCE STAT IV Last administered on 07/07/17 18:26; Start 07/07/17 at 14:59; Stop 07/07/17 at 15 :28; Status DC Pharmacy Profile Note 0 ml @ 0 mls/hr UNSCH OTHER ; Start 07/07/17 at 15:15; Stop 07/07/17 at 20:46; Status DC Pharmacy Profile Note 0 ml @ 0 mls/hr UNSCH OTHER ; Start 07/07/17 at 15:15 Hydralazine HCl (Apresoline Inj) 10 mg Q6H PRN IV PUSH SBP> OR = 180, DBP> OR = 100; Start 07/07/17 at 15:15 Clonidine (Catapres) 0.1 mg Q6H PRN PO SBP> OR = 180, DBP> OR = 100; Start at 15:15 Sodium Chloride (NS Flush) 2 ml UNSCH PRN IV FLUSH FLUSH AFTER USING IV ACCESS ; Start 07/07/17 at 15:15; Stop 07/09/17 at 08:34; Status DC Sodium Chloride (NS Flush) 2 ml BID IV FLUSH Last administered on 07/08/17t 20 :43; Start 07/07/17 at 21:00; Stop 07/09/17 at 08:34; Status DC Acetaminophen (Tylenol) 650 mg Q4H PRN PO TEMP > 100.4; Start 07/07/17 at 15: 15 Ondansetron HCl (Zofran Inj) 4 mg Q6H PRN IVP NAUSEA OR VOMITING; Start at 15:15 Acetaminophen (Tylenol) 650 mg Q6H PRN PO PAIN SCALE 1 TO 2; Start 07/07/17 at 15:15; Stop 07/09/17 at 08:38; Status DC Acetaminophen/ Hydrocodone Bitart ([place] 5-325 Mg) 1 tab Q4H PRN PO PAIN SCALE 3 TO 5 Last administered on 07/09/17 00:08; Start 07/07/17 at 15:15; Stop 07/09/17 at 08:32; Status DC Acetaminophen/ Hydrocodone Bitart ([place] 7.5-325 Mg) 1 tab Q4H PRN PO PAIN SCALE 6 TO 10; Start 07/07/17 at 15:15; Stop 07/09/17 at 08:37; Status DC Morphine Sulfate (Morphine Inj) 2 mg Q3H PRN IV PUSH BREAKTHROUGH PAIN; Start 07/07/17 at 15:15; Stop 07/09/17 at 08:39; Status DC Naloxone HCl (Narcan Inj) 0.4 mg UNSCH PRN IV PUSH SEE LABEL COMMENTS; Start 07/07/17 at 15:15; Stop 07/09/17 at 08:33; Status DC Senna/Docusate Sodium (Bindu-Colace) 1 tab BID PO Last administered on 10:27; Start 07/07/17 at 21:00 Sennosides (Senokot) 17.2 mg Q12H PRN PO Moderate constipation; Start at 15:15 Bisacodyl (Dulcolax Supp) 10 mg DAILY PRN RECTAL SEVERE CONSITIPATION; Start 07/07/17 at 15:15 Lactulose (Lactulose Liq) 30 ml DAILY PRN PO SEVERE CONSITIPATION; Start 07/07 at 15:15 Vancomycin HCl 1250 mg/Sodium Chloride 262.5 ml @ 250 mls/hr ONCE ONCE IV Last administered on 07/07/17 19:11; Start 07/07/17 at 17:00; Stop 07/07/17 at 18:02; Status DC Finasteride (Proscar) 5 mg DAILY PO Last administered on 07/10/17 09:40; Start 07/08/17 at 09:00 Tamsulosin HCl (Flomax) 0.4 mg HS PO Last administered on 07/09/17 21:21; Start 07/07/17 at 21:00 Gadodiamide (Omniscan Pf Inj) 13 ml STK-MED ONCE IVCONTRAST Last administered on 07/07/17 19:49; Start 07/07/17 at 19:49; Stop 07/07/17 at 19:53; Status DC Piperacillin Sod/ Tazobactam Sod 100 ml @ 200 mls/hr Q6HR IV Last administered on 07/10/17 05:14; Start 07/08/17 at 00:00 Pharmacy Profile Note 0 ml @ 0 mls/hr UNSCH OTHER ; Start 07/07/17 at 20:00 Vancomycin HCl 700 mg/Sodium Chloride 257 ml @ 250 mls/hr Q12H IV Last administered on 07/08/17 07:01; Start 07/08/17 at 07:00; Stop 07/08/17 at 11 :04; Status DC Miscellaneous Information SPECIFIC LAB TO BE ... ONCE ONCE .XX ; Start at 14:45; Stop 07/09/17 at 14:46; Status DC Aspirin (Ecotrin Ec) 81 mg DAILY PO Last administered on 07/10/17 09:39; Start 07/08/17 at 09:00 Atorvastatin Calcium (Lipitor) 40 mg DAILY PO Last administered on 07/10/17 09:41; Start 07/08/17 at 09:00 Losartan Potassium (Cozaar) 25 mg DAILY PO Last administered on 07/10/17 09: 41; Start 07/08/17 at 09:00 Vancomycin HCl 1000 mg/Sodium Chloride 250 ml @ 250 mls/hr Q12H IV Last administered on 07/10/17 02:36; Start 07/08/17 at 15:00 Lactated Ringer's 1,000 ml @ 30 mls/hr Q24H PRN IV SEE LABEL COMMENTS Last administered on 07/09/17 07:00; Start 07/09/17 at 04:30; Stop 07/12/17 at 04 :29 Sodium Chloride 500 ml @ 30 mls/hr [id number] PRN IV SEE LABEL COMMENTS; Start at 04:30; Stop 07/12/17 at 04:29 Metoprolol Tartrate (Lopressor) 25 mg HEALTH AND HUMAN PERFORMANCE PROFESSOR PRN PO SEE LABEL COMMENTS; Start 07/09/17 at 04:30; Stop 07/12/17 at 04:29 Povidone Iodine (Betadine 5% Antisepsis Kit) 1 applic HEALTH AND HUMAN PERFORMANCE PROFESSOR PRN EACH NARE SEE LABEL COMMENTS; Start 07/09/17 at 04:30; Stop 07/12/17 at 04:29 Chlorhexidine Gluconate (Chlorhexidine 2% Cloth) 3 pack HEALTH AND HUMAN PERFORMANCE PROFESSOR PRN TOPICAL SEE LABEL COMMENTS; Start 07/09/17 at 04:30; Stop 07/12/17 at 04:29 Insulin Human Regular (NovoLIN R INJ) See Protocol Table ... HEALTH AND HUMAN PERFORMANCE PROFESSOR PRN SQ SEE PROTOCOL TABLE; Start 07/09/17 at 04:30; Stop 07/12/17 at 04:29 Bupivacaine HCl (Marcaine Pf 0.5% Inj) 30 ml STK-MED ONCE .ROUTE Last administered on 07/09/17 07:46; Start 07/09/17 at 07:11; Stop 07/09/17 at 07 :12; Status DC Lidocaine HCl (Xylocaine 1% Inj (50 ml)) 50 ml STK-MED ONCE .ROUTE ; Start at 07:11; Stop 07/09/17 at 07:12; Status DC Sodium Chloride (NS Flush) 2 ml UNSCH PRN IV FLUSH FLUSH AFTER USING IV ACCESS ; Start 07/09/17 at 08:30 Sodium Chloride (NS Flush) 2 ml BID IV FLUSH Last administered on 07/10/17 09 :39; Start 07/09/17 at 09:00 Miscellaneous Information (Post-op Orders (for Pharmacy)) STAT ONCE XX ; Start 07/09/17 at 08:30; Stop 07/09/17 at 08:37; Status DC Ibuprofen (Motrin) 400 mg Q6H PRN PO PAIN SCALE 1 TO 2; Start 07/09/17 at 09: 00 Acetaminophen/ Hydrocodone Bitart ([place] 5-325 Mg) 1 tab Q4H PRN PO PAIN SCALE 3 TO 5 Last administered on 07/10/17 04:45; Start 07/09/17 at 09:00 Hydromorphone HCl (Dilaudid Pf Inj) 1 mg Q3H PRN IV PUSH BREAKTHROUGH PAIN; Start 07/09/17 at 09:00 Hydromorphone HCl (Dilaudid) 2 mg Q4H PRN PO PAIN SCALE 6 TO 10; Start at 09:00 Naloxone HCl (Narcan Inj) 0.4 mg UNSCH PRN IV PUSH SEE LABEL COMMENTS; Start 07/09/17 at 08:30 Miscellaneous Information ALL NURSING DEPARTME... UNSCH PRN .XX SEE LABEL COMMENTS; Start 07/09/17 at 08:23; Stop 07/10/17 at 08:22; Status DC Other Results Microbiology Date/Time Source Procedure Growth Status 07/07/17 17:30 Blood Peripheral Aerobic Blood Culture - Preliminary NO GROWTH IN 2 DAYS Resulted 07/07/17 17:30 Blood Peripheral Anaerobic Blood Culture - Preliminary NO GROWTH IN 2 DAYS Resulted 07/07/17 17:20 Blood Peripheral Aerobic Blood Culture - Preliminary NO GROWTH IN 2 DAYS Resulted 07/07/17 17:20 Blood Peripheral Anaerobic Blood Culture - Preliminary NO GROWTH IN 2 DAYS Resulted Exam-Podiatry Constitutional General appearance: comfortable Nutritional status: normal Orientation: alert and oriented x3 Dermatological Exam Skin Temp - Right: Within Normal Limits Skin Texture - Right: Within Normal Limits Skin Elasticity - Right: Within Normal Limits Skin Tugor - Right: Within Normal Limits Hair Growth - Right: Within Normal Limits Pigmentation - Right: Within Normal Limits Skin Temp - Left: Within Normal Limits Skin Texture - Left: Within Normal Limits Skin Elasticity - Left: Within Normal Limits Skin Tugor - Left: Within Normal Limits Hair Growth - Left: Within Normal Limits Pigmentation - Left: Within Normal Limits Other: Scars, Surgery,Injury Dressing to right foot is intact dry. Minimal bleeding seen on the bandage. Vascular/Lymphatic Exam R Dorsails Pedis: Palpable L Dorsails Pedis: Palpable R Posterior Tibial: Palpable L Posterior Tibial: Palpable Neurologic Exam Present on right: Paraesthesia Musculoskeletal Exam Details Right hallux amputation Muscle Strength Dorsiflexion (Right): Normal Plantarflexion (Right): Normal Inversion (Right): Normal Eversion (Right): Normal Digital (Right): Normal Dorsiflexion (Left): Normal Plantarflexion (Left): Normal Inversion (Left): Normal Eversion (Left): Normal Digital (Left): Normal Foot Range of Motion Dorsiflexion (Right): Normal Plantarflexion (Right): Normal Inversion (Right): Normal Eversion (Right): Normal Digital (Right): Normal Dorsiflexion (Left): Normal Plantarflexion (Left): Normal Inversion (Left): Normal Eversion (Left): Normal Digital (Left): Normal Assessment & Plan Diagnosis: (1) Osteomyelitis of toe of right foot ICD Codes: M86.9 - Osteomyelitis, unspecified Status: Resolved (2) Cellulitis of great toe of right foot ICD Codes: L03.031 - Cellulitis of right toe Status: Resolved A/P PLAN: Patient may get out of bed to the bathroom the postop shoe. I will change his dressing tomorrow. If incision site looks good we can be discharged tomorrow or Wednesday when cleared by medicine. Discharge on oral antibiotics of Augmentin per ID. Follow-up in my office next week. Patient states she will stay in [facility] for the next few weeks for postoperative care. Jack Ramírez DPM Jul 10, 2017 10:29
--- NOTE | 2017-07-10 12:25 | HHI.PR ---
Subjective Remarks Follow-up foot infection status post surgery. He is doing okay. Discussed with ID, discharged on by mouth medications. According to podiatry, pathology showed clear margin Objective Vitals Vital Signs Date Time Temp Pulse Resp B/P (MAP) Pulse Ox O2 Delivery O2 Flow Rate FiO2 07/10/17 10:33 97 07/10/17 08:20 Room Air 07/10/17 08:00 97.9 68 19 124/69 (87) 97 07/10/17 04:32 99.3 73 16 129/67 (87) 95 07/09/17 23:38 98.4 80 16 128/60 (82) 95 07/09/17 21:25 Room Air 07/09/17 20:42 97.6 63 16 130/77 (94) 97 07/09/17 20:00 57 07/09/17 17:57 95 21 07/09/17 16:00 Room Air 07/09/17 16:00 98.5 68 20 126/66 (86) 94 I/O 07/09/17 07/09/17 07/09/17 07/10/17 07/10/17 07/10/17 07:00 15:00 23:00 07:00 15:00 23:00 Intake Total 1050 ml 600 ml 830 ml 690 ml Output Total 500 ml 10 ml 350 ml 650 ml Balance 550 ml 590 ml 480 ml 40 ml Intake Oral 600 ml 480 ml 240 ml IV Total 450 ml 600 ml 350 ml 450 ml Output Urine Total 500 ml 350 ml 650 ml Estimated Blood Loss 10 ml # Voids 3 # Bowel Movements 1 1 1 Result Diagram: 07/07/17 1720 07/07/17 172 Objective Remarks GENERAL: This is a well-nourished, well-developed patient, in no apparent distress. SKIN: Warm and dry. Left Flank maculopapular rash present. CARDIOVASCULAR: Regular rate and rhythm without murmurs, gallops, or rubs. RESPIRATORY: Clear to auscultation. Breath sounds equal bilaterally. No wheezes , rales, or rhonchi. GASTROINTESTINAL: Abdomen soft, non-tender, nondistended. Bowel sounds active 4. No guarding. MUSCULOSKELETAL: Extremities without clubbing, cyanosis. Right foot with dry dressing NEUROLOGICAL: Awake and alert. Cranial nerves II through XII intact. Motor and sensory grossly within normal limits. Normal speech. Procedures Amputation of the right great toe and first metatarsal A/P Problem List: (1) Cellulitis of right foot ICD Code: L03.115 - Cellulitis of right lower limb Status: Acute (2) Cellulitis of great toe of right foot ICD Code: L03.031 - Cellulitis of right toe Status: Resolved (3) HTN (hypertension) ICD Code: I10 - Essential (primary) hypertension Status: Chronic (4) HLD (hyperlipidemia) ICD Code: E78.5 - Hyperlipidemia, unspecified Status: Chronic (5) BPH (benign prostatic hyperplasia) ICD Code: N40.0 - Benign prostatic hyperplasia without lower urinary tract symptoms Status: Chronic Assessment and Plan Patient is a 71 y/o male with PMHX of HTN, HLD, BPH who came in as direct admission for Right Toe/ Right foot Cellulitis. Right Foot, Right Hallux/ Great Toe Cellulitis, Abscess and OM of first and second metatarsals with failed outpatient therapy. Sepsis suspect - Blood Cutures NGTD - ct IV antibiotics Zosyn and vancomycin IV - Monitor labs - Pain management with Lortab and IV morphine - Status post amputation of the right great toe and first metatarsal. Postoperative wound care. Follow up official pathology report - Stable possible discharge in the morning after podiatry evaluation of the wound. ID recommends Augmentin 500 mg 3 times a day for 10 days HTN, chronic HLD, chronic -Continue home meds losartan 25 mg daily, atorvastatin 40 mg daily - Monitor BP trend BPH, chronic -Continue home medication finasteride, Flomax DVT prop SCD start pharmacological prophylaxis daily if okay with podiatry Pancho Quintero MD Jul 10, 2017 12:25
[2017-07-10] MEDS ORDERED: AUGM500T7 PO (17:44)
[2017-07-10] MEDS ORDERED: HYDR-3516 PO (17:45)
--- NOTE | 2017-07-10 17:46 | HHI.DCPOC ---
Discharge Care Plan Diagnosis: (1) Cellulitis of great toe of right foot (2) Osteomyelitis of toe of right foot Your Health Problems Are: Difficulty with ADL Exercise Tolerance Goals to Promote Your Health * To prevent worsening of your condition and complications * To maintain your health at the optimal level Directions to Meet Your Goals Take your medications as prescribed Follow your dietary instruction Follow activity as directed Keep your appointments as scheduled Take your immunizations and boosters as scheduled If your symptoms worsen call your PCP, if no PCP go to Urgent Care Center or Emergency Room Smoking is Dangerous to Your Health. Avoid second hand smoke Call the 24-hour hour crisis hotline for domestic abuse at Pancho Quintero MD Jul 10, 2017 17:45
--- NOTE | 2017-07-10 17:46 | HHI.DCPOC ---
Discharge Care Plan Diagnosis: (1) Cellulitis of great toe of right foot (2) Osteomyelitis of toe of right foot Your Health Problems Are: Difficulty with ADL Exercise Tolerance Goals to Promote Your Health * To prevent worsening of your condition and complications * To maintain your health at the optimal level Directions to Meet Your Goals Take your medications as prescribed Follow your dietary instruction Follow activity as directed Keep your appointments as scheduled Take your immunizations and boosters as scheduled If your symptoms worsen call your PCP, if no PCP go to Urgent Care Center or Emergency Room Smoking is Dangerous to Your Health. Avoid second hand smoke Call the 24-hour hour crisis hotline for domestic abuse at Pancho Quintero MD Jul 10, 2017 17:45
--- NOTE | 2017-07-10 17:46 | HHI.DCPOC ---
Discharge Care Plan Diagnosis: (1) Cellulitis of great toe of right foot (2) Osteomyelitis of toe of right foot Your Health Problems Are: Difficulty with ADL Exercise Tolerance Goals to Promote Your Health * To prevent worsening of your condition and complications * To maintain your health at the optimal level Directions to Meet Your Goals Take your medications as prescribed Follow your dietary instruction Follow activity as directed Keep your appointments as scheduled Take your immunizations and boosters as scheduled If your symptoms worsen call your PCP, if no PCP go to Urgent Care Center or Emergency Room Smoking is Dangerous to Your Health. Avoid second hand smoke Call the 24-hour hour crisis hotline for domestic abuse at Pancho Quintero MD Jul 10, 2017 17:45
[2017-07-10] MEDS: HEPARIN SODIUM - SQ 10,000 UNITS/ML VIAL SQ SCH (20:27)
[2017-07-10] MEDS: TAMSULOSIN HCL 0.4 MG CAP PO SCH (20:27)
[2017-07-11] VITALS: BP 115/69; PULSE 69; RESP 19; TEMP 97.9; O2SAT 93
[2017-07-11] MEDS: PIPERACIL-TAZO 4.5 GM PREMIX 100 ML IV SCH ×3 (01:07→12:29)
[2017-07-11] MEDS: VANCOMYCIN 1,000 MG/NS 250 ML IV SCH ×2 (02:09)
[2017-07-11 04:00] VITALS: BP 129/69; PULSE 67; RESP 21; TEMP 97.4; O2SAT 96
[2017-07-11] MEDS: ACETAMINOPHEN/HYDROcodone 325 MG/5 MG TAB PO PRN (05:31)
[2017-07-11 08:00] VITALS: BP 119/74; PULSE 61; PULSE 78; RESP 20; TEMP 98; O2SAT 96
[2017-07-11] MEDS: FINASTERIDE 5 MG TAB PO SCH (08:33)
[2017-07-11] MEDS: ASPIRIN EC 81 MG TABEC PO SCH (08:33)
[2017-07-11] MEDS: LOSARTAN 25 MG TAB PO SCH (08:33)
[2017-07-11] MEDS: ATORVASTATIN 40 MG TAB PO SCH (08:33)
[2017-07-11] MEDS: HEPARIN SODIUM - SQ 10,000 UNITS/ML VIAL SQ SCH (08:33)
[2017-07-11] MEDS: SODIUM CHLORIDE 0.9% FLUSH 10 ML FLUSH IV FLUSH SCH (08:34)
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
[2017-07-11] MEDS ORDERED: WALKER WHEELS/F1 MIS (11:13)
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
--- NOTE | 2017-07-11 11:14 | PD.POD ---
Subjective Podiatric Problems Status post right hallux amputation Pain scale used: 0-10 numeric scale Pain score: 1 Remarks 71-year-old male visiting from the [facility] who developed a wound and cyanosis of the right hallux. MRI showed osteomyelitic changes. He underwent an amputation of the right hallux and partial first met head for clear margins. Patient is without complaints. Has only minimal discomfort. Past Med/Surg/Social History Past Medical History PFS Reviewed: Yes Cardiovascular: REPORTS HX OF: Hypertension Genitourinary - male: REPORTS HX OF: Benign prost. hyperplasia Past Surgical History Musculoskeletal: REPORTS HX OF: Other musculoskeletal srg (right leg fracture repair) Social History Smoking Status: Never Smoker Review of Systems Constitutional: COMPLAINS OF: Good general health Cardiovascular: COMPLAINS OF: Hx hypertension Objective Vital Signs Vital Signs Date Time Temp Pulse Resp B/P (MAP) Pulse Ox O2 Delivery O2 Flow Rate FiO2 07/11/17 08:02 Room Air 07/11/17 08:00 78 07/11/17 08:00 98.0 61 20 119/74 (89) 96 07/11/17 04:00 Room Air 07/11/17 04:00 97.4 67 21 129/69 (89) 96 07/11/17 00:00 Room Air 07/11/17 00:00 97.9 69 19 115/69 (84) 93 07/10/17 21:47 95 21 07/10/17 20:38 71 07/10/17 20:00 Room Air 07/10/17 20:00 97.6 87 20 143/78 (99) 95 07/10/17 16:00 98.6 68 18 132/78 (96) 95 07/10/17 12:00 98.1 83 18 129/67 (87) 95 Coded Allergies: No Known Allergies (Unverified , 07/07/17) Medications and IVs Current Medications Ciprofloxacin/ Dextrose 200 ml @ 200 mls/hr STAT ONCE IV Last administered on 07/07/17 16:53; Start 07/07/17 at 15:00; Stop 07/07/17 at 15:59; Status DC Piperacillin Sod/ Tazobactam Sod 50 ml @ 100 mls/hr ONCE STAT IV Last administered on 07/07/17 18:26; Start 07/07/17 at 14:59; Stop 07/07/17 at 15 :28; Status DC Pharmacy Profile Note 0 ml @ 0 mls/hr UNSCH OTHER ; Start 07/07/17 at 15:15; Stop 07/07/17 at 20:46; Status DC Pharmacy Profile Note 0 ml @ 0 mls/hr UNSCH OTHER ; Start 07/07/17 at 15:15 Hydralazine HCl (Apresoline Inj) 10 mg Q6H PRN IV PUSH SBP> OR = 180, DBP> OR = 100; Start 07/07/17 at 15:15 Clonidine (Catapres) 0.1 mg Q6H PRN PO SBP> OR = 180, DBP> OR = 100; Start at 15:15 Sodium Chloride (NS Flush) 2 ml UNSCH PRN IV FLUSH FLUSH AFTER USING IV ACCESS ; Start 07/07/17 at 15:15; Stop 07/09/17 at 08:34; Status DC Sodium Chloride (NS Flush) 2 ml BID IV FLUSH Last administered on 07/08/17t 20 :43; Start 07/07/17 at 21:00; Stop 07/09/17 at 08:34; Status DC Acetaminophen (Tylenol) 650 mg Q4H PRN PO TEMP > 100.4; Start 07/07/17 at 15: 15 Ondansetron HCl (Zofran Inj) 4 mg Q6H PRN IVP NAUSEA OR VOMITING; Start at 15:15 Acetaminophen (Tylenol) 650 mg Q6H PRN PO PAIN SCALE 1 TO 2; Start 07/07/17 at 15:15; Stop 07/09/17 at 08:38; Status DC Acetaminophen/ Hydrocodone Bitart ([place] 5-325 Mg) 1 tab Q4H PRN PO PAIN SCALE 3 TO 5 Last administered on 07/09/17 00:08; Start 07/07/17 at 15:15; Stop 07/09/17 at 08:32; Status DC Acetaminophen/ Hydrocodone Bitart ([place] 7.5-325 Mg) 1 tab Q4H PRN PO PAIN SCALE 6 TO 10; Start 07/07/17 at 15:15; Stop 07/09/17 at 08:37; Status DC Morphine Sulfate (Morphine Inj) 2 mg Q3H PRN IV PUSH BREAKTHROUGH PAIN; Start 07/07/17 at 15:15; Stop 07/09/17 at 08:39; Status DC Naloxone HCl (Narcan Inj) 0.4 mg UNSCH PRN IV PUSH SEE LABEL COMMENTS; Start 07/07/17 at 15:15; Stop 07/09/17 at 08:33; Status DC Senna/Docusate Sodium (Bindu-Colace) 1 tab BID PO Last administered on 10:27; Start 07/07/17 at 21:00; Stop 07/10/17 at 17:42; Status DC Sennosides (Senokot) 17.2 mg Q12H PRN PO Moderate constipation; Start at 15:15 Bisacodyl (Dulcolax Supp) 10 mg DAILY PRN RECTAL SEVERE CONSITIPATION; Start 07/07/17 at 15:15 Lactulose (Lactulose Liq) 30 ml DAILY PRN PO SEVERE CONSITIPATION; Start 07/07 at 15:15 Vancomycin HCl 1250 mg/Sodium Chloride 262.5 ml @ 250 mls/hr ONCE ONCE IV Last administered on 07/07/17 19:11; Start 07/07/17 at 17:00; Stop 07/07/17 at 18:02; Status DC Finasteride (Proscar) 5 mg DAILY PO Last administered on 07/11/17 08:33; Start 07/08/17 at 09:00 Tamsulosin HCl (Flomax) 0.4 mg HS PO Last administered on 07/10/17 20:27; Start 07/07/17 at 21:00 Gadodiamide (Omniscan Pf Inj) 13 ml STK-MED ONCE IVCONTRAST Last administered on 07/07/17 19:49; Start 07/07/17 at 19:49; Stop 07/07/17 at 19:53; Status DC Piperacillin Sod/ Tazobactam Sod 100 ml @ 200 mls/hr Q6HR IV Last administered on 07/11/17 05:13; Start 07/08/17 at 00:00 Pharmacy Profile Note 0 ml @ 0 mls/hr UNSCH OTHER ; Start 07/07/17 at 20:00 Vancomycin HCl 700 mg/Sodium Chloride 257 ml @ 250 mls/hr Q12H IV Last administered on 07/08/17 07:01; Start 07/08/17 at 07:00; Stop 07/08/17 at 11 :04; Status DC Miscellaneous Information SPECIFIC LAB TO BE ... ONCE ONCE .XX ; Start at 14:45; Stop 07/09/17 at 14:46; Status DC Aspirin (Ecotrin Ec) 81 mg DAILY PO Last administered on 07/11/17 08:33; Start 07/08/17 at 09:00 Atorvastatin Calcium (Lipitor) 40 mg DAILY PO Last administered on 07/11/17 08:33; Start 07/08/17 at 09:00 Losartan Potassium (Cozaar) 25 mg DAILY PO Last administered on 07/11/17 08: 33; Start 07/08/17 at 09:00 Vancomycin HCl 1000 mg/Sodium Chloride 250 ml @ 250 mls/hr Q12H IV Last administered on 07/11/17 02:09; Start 07/08/17 at 15:00 Lactated Ringer's 1,000 ml @ 30 mls/hr Q24H PRN IV SEE LABEL COMMENTS Last administered on 07/09/17 07:00; Start 07/09/17 at 04:30; Stop 07/12/17 at 04 :29 Sodium Chloride 500 ml @ 30 mls/hr [id number] PRN IV SEE LABEL COMMENTS; Start at 04:30; Stop 07/12/17 at 04:29 Metoprolol Tartrate (Lopressor) 25 mg CHANNELER OUTSOLE PRN PO SEE LABEL COMMENTS; Start 07/09/17 at 04:30; Stop 07/12/17 at 04:29 Povidone Iodine (Betadine 5% Antisepsis Kit) 1 applic CHANNELER OUTSOLE PRN EACH NARE SEE LABEL COMMENTS; Start 07/09/17 at 04:30; Stop 07/12/17 at 04:29 Chlorhexidine Gluconate (Chlorhexidine 2% Cloth) 3 pack CH[employer]SOLE PRN TOPICAL SEE LABEL COMMENTS; Start 07/09/17 at 04:30; Stop 07/12/17 at 04:29 Insulin Human Regular (NovoLIN R INJ) See Protocol Table ... CHANNEL[employer] OUTSOLE PRN SQ SEE PROTOCOL TABLE; Start 07/09/17 at 04:30; Stop 07/12/17 at 04:29 Bupivacaine HCl (Marcaine Pf 0.5% Inj) 30 ml STK-MED ONCE .ROUTE Last administered on 07/09/17 07:46; Start 07/09/17 at 07:11; Stop 07/09/17 at 07 :12; Status DC Lidocaine HCl (Xylocaine 1% Inj (50 ml)) 50 ml STK-MED ONCE .ROUTE ; Start at 07:11; Stop 07/09/17 at 07:12; Status DC Sodium Chloride (NS Flush) 2 ml UNSCH PRN IV FLUSH FLUSH AFTER USING IV ACCESS ; Start 07/09/17 at 08:30 Sodium Chloride (NS Flush) 2 ml BID IV FLUSH Last administered on 07/11/17 08 :34; Start 07/09/17 at 09:00 Miscellaneous Information (Post-op Orders (for Pharmacy)) STAT ONCE XX ; Start 07/09/17 at 08:30; Stop 07/09/17 at 08:37; Status DC Ibuprofen (Motrin) 400 mg Q6H PRN PO PAIN SCALE 1 TO 2; Start 07/09/17 at 09: 00 Acetaminophen/ Hydrocodone Bitart ([place] 5-325 Mg) 1 tab Q4H PRN PO PAIN SCALE 3 TO 5 Last administered on 07/11/17 05:31; Start 07/09/17 at 09:00 Hydromorphone HCl (Dilaudid Pf Inj) 1 mg Q3H PRN IV PUSH BREAKTHROUGH PAIN; Start 07/09/17 at 09:00 Hydromorphone HCl (Dilaudid) 2 mg Q4H PRN PO PAIN SCALE 6 TO 10; Start at 09:00 Naloxone HCl (Narcan Inj) 0.4 mg UNSCH PRN IV PUSH SEE LABEL COMMENTS; Start 07/09/17 at 08:30 Miscellaneous Information ALL NURSING DEPARTME... UNSCH PRN .XX SEE LABEL COMMENTS; Start 07/09/17 at 08:23; Stop 07/10/17 at 08:22; Status DC Heparin Sodium (Porcine) (Heparin Inj) 5,000 units Q12HR SQ Last administered on 07/11/17 08:33; Start 07/10/17 at 21:00 Exam-Podiatry Constitutional General appearance: comfortable Nutritional status: normal Orientation: alert and oriented x3 Dermatological Exam Skin Temp - Right: Within Normal Limits Skin Texture - Right: Within Normal Limits Skin Elasticity - Right: Within Normal Limits Skin Tugor - Right: Within Normal Limits Hair Growth - Right: Within Normal Limits Pigmentation - Right: Within Normal Limits Skin Temp - Left: Within Normal Limits Skin Texture - Left: Within Normal Limits Skin Elasticity - Left: Within Normal Limits Skin Tugor - Left: Within Normal Limits Hair Growth - Left: Within Normal Limits Pigmentation - Left: Within Normal Limits Other: Scars, Surgery,Injury Dressing change was performed under aseptic condition. Wound edges are well coapted. Sutures in place. No signs of infection or cellulitis. Minimal edema noted. Vascular/Lymphatic Exam R Dorsails Pedis: Palpable L Dorsails Pedis: Palpable R Posterior Tibial: Palpable L Posterior Tibial: Palpable Neurologic Exam Present on right: Paraesthesia Musculoskeletal Exam Details Status post right hallux amputation Muscle Strength Dorsiflexion (Right): Normal Plantarflexion (Right): Normal Inversion (Right): Normal Eversion (Right): Normal Digital (Right): Normal Dorsiflexion (Left): Normal Plantarflexion (Left): Normal Inversion (Left): Normal Eversion (Left): Normal Digital (Left): Normal Foot Range of Motion Dorsiflexion (Right): Normal Plantarflexion (Right): Normal Inversion (Right): Normal Eversion (Right): Normal Digital (Right): Normal Dorsiflexion (Left): Normal Plantarflexion (Left): Normal Inversion (Left): Normal Eversion (Left): Normal Digital (Left): Normal Assessment & Plan Diagnosis: (1) Osteomyelitis of toe of right foot ICD Codes: M86.9 - Osteomyelitis, unspecified Status: Resolved (2) Cellulitis of great toe of right foot ICD Codes: L03.031 - Cellulitis of right toe Status: Resolved A/P PLAN: Dressing change performed under aseptic conditions. Patient to wear postop shoe at all times. No bath or shower. Okay to discharge from a podiatry standpoint. Follow-up in my office on Wednesday. Patient seen with Jack Donald DPM Jul 11, 2017 11:14
--- NOTE | 2017-07-11 11:14 | PD.POD ---
Subjective Podiatric Problems Status post right hallux amputation Pain scale used: 0-10 numeric scale Pain score: 1 Remarks 71-year-old male visiting from the [facility] who developed a wound and cyanosis of the right hallux. MRI showed osteomyelitic changes. He underwent an amputation of the right hallux and partial first met head for clear margins. Patient is without complaints. Has only minimal discomfort. Past Med/Surg/Social History Past Medical History PFS Reviewed: Yes Cardiovascular: REPORTS HX OF: Hypertension Genitourinary - male: REPORTS HX OF: Benign prost. hyperplasia Past Surgical History Musculoskeletal: REPORTS HX OF: Other musculoskeletal srg (right leg fracture repair) Social History Smoking Status: Never Smoker Review of Systems Constitutional: COMPLAINS OF: Good general health Cardiovascular: COMPLAINS OF: Hx hypertension Objective Vital Signs Vital Signs Date Time Temp Pulse Resp B/P (MAP) Pulse Ox O2 Delivery O2 Flow Rate FiO2 07/11/17 08:02 Room Air 07/11/17 08:00 78 07/11/17 08:00 98.0 61 20 119/74 (89) 96 07/11/17 04:00 Room Air 07/11/17 04:00 97.4 67 21 129/69 (89) 96 07/11/17 00:00 Room Air 07/11/17 00:00 97.9 69 19 115/69 (84) 93 07/10/17 21:47 95 21 07/10/17 20:38 71 07/10/17 20:00 Room Air 07/10/17 20:00 97.6 87 20 143/78 (99) 95 07/10/17 16:00 98.6 68 18 132/78 (96) 95 07/10/17 12:00 98.1 83 18 129/67 (87) 95 Coded Allergies: No Known Allergies (Unverified , 07/07/17) Medications and IVs Current Medications Ciprofloxacin/ Dextrose 200 ml @ 200 mls/hr STAT ONCE IV Last administered on 07/07/17 16:53; Start 07/07/17 at 15:00; Stop 07/07/17 at 15:59; Status DC Piperacillin Sod/ Tazobactam Sod 50 ml @ 100 mls/hr ONCE STAT IV Last administered on 07/07/17 18:26; Start 07/07/17 at 14:59; Stop 07/07/17 at 15 :28; Status DC Pharmacy Profile Note 0 ml @ 0 mls/hr UNSCH OTHER ; Start 07/07/17 at 15:15; Stop 07/07/17 at 20:46; Status DC Pharmacy Profile Note 0 ml @ 0 mls/hr UNSCH OTHER ; Start 07/07/17 at 15:15 Hydralazine HCl (Apresoline Inj) 10 mg Q6H PRN IV PUSH SBP> OR = 180, DBP> OR = 100; Start 07/07/17 at 15:15 Clonidine (Catapres) 0.1 mg Q6H PRN PO SBP> OR = 180, DBP> OR = 100; Start at 15:15 Sodium Chloride (NS Flush) 2 ml UNSCH PRN IV FLUSH FLUSH AFTER USING IV ACCESS ; Start 07/07/17 at 15:15; Stop 07/09/17 at 08:34; Status DC Sodium Chloride (NS Flush) 2 ml BID IV FLUSH Last administered on 07/08/17t 20 :43; Start 07/07/17 at 21:00; Stop 07/09/17 at 08:34; Status DC Acetaminophen (Tylenol) 650 mg Q4H PRN PO TEMP > 100.4; Start 07/07/17 at 15: 15 Ondansetron HCl (Zofran Inj) 4 mg Q6H PRN IVP NAUSEA OR VOMITING; Start at 15:15 Acetaminophen (Tylenol) 650 mg Q6H PRN PO PAIN SCALE 1 TO 2; Start 07/07/17 at 15:15; Stop 07/09/17 at 08:38; Status DC Acetaminophen/ Hydrocodone Bitart ([place] 5-325 Mg) 1 tab Q4H PRN PO PAIN SCALE 3 TO 5 Last administered on 07/09/17 00:08; Start 07/07/17 at 15:15; Stop 07/09/17 at 08:32; Status DC Acetaminophen/ Hydrocodone Bitart ([place] 7.5-325 Mg) 1 tab Q4H PRN PO PAIN SCALE 6 TO 10; Start 07/07/17 at 15:15; Stop 07/09/17 at 08:37; Status DC Morphine Sulfate (Morphine Inj) 2 mg Q3H PRN IV PUSH BREAKTHROUGH PAIN; Start 07/07/17 at 15:15; Stop 07/09/17 at 08:39; Status DC Naloxone HCl (Narcan Inj) 0.4 mg UNSCH PRN IV PUSH SEE LABEL COMMENTS; Start 07/07/17 at 15:15; Stop 07/09/17 at 08:33; Status DC Senna/Docusate Sodium (Bindu-Colace) 1 tab BID PO Last administered on 10:27; Start 07/07/17 at 21:00; Stop 07/10/17 at 17:42; Status DC Sennosides (Senokot) 17.2 mg Q12H PRN PO Moderate constipation; Start at 15:15 Bisacodyl (Dulcolax Supp) 10 mg DAILY PRN RECTAL SEVERE CONSITIPATION; Start 07/07/17 at 15:15 Lactulose (Lactulose Liq) 30 ml DAILY PRN PO SEVERE CONSITIPATION; Start 07/07 at 15:15 Vancomycin HCl 1250 mg/Sodium Chloride 262.5 ml @ 250 mls/hr ONCE ONCE IV Last administered on 07/07/17 19:11; Start 07/07/17 at 17:00; Stop 07/07/17 at 18:02; Status DC Finasteride (Proscar) 5 mg DAILY PO Last administered on 07/11/17 08:33; Start 07/08/17 at 09:00 Tamsulosin HCl (Flomax) 0.4 mg HS PO Last administered on 07/10/17 20:27; Start 07/07/17 at 21:00 Gadodiamide (Omniscan Pf Inj) 13 ml STK-MED ONCE IVCONTRAST Last administered on 07/07/17 19:49; Start 07/07/17 at 19:49; Stop 07/07/17 at 19:53; Status DC Piperacillin Sod/ Tazobactam Sod 100 ml @ 200 mls/hr Q6HR IV Last administered on 07/11/17 05:13; Start 07/08/17 at 00:00 Pharmacy Profile Note 0 ml @ 0 mls/hr UNSCH OTHER ; Start 07/07/17 at 20:00 Vancomycin HCl 700 mg/Sodium Chloride 257 ml @ 250 mls/hr Q12H IV Last administered on 07/08/17 07:01; Start 07/08/17 at 07:00; Stop 07/08/17 at 11 :04; Status DC Miscellaneous Information SPECIFIC LAB TO BE ... ONCE ONCE .XX ; Start at 14:45; Stop 07/09/17 at 14:46; Status DC Aspirin (Ecotrin Ec) 81 mg DAILY PO Last administered on 07/11/17 08:33; Start 07/08/17 at 09:00 Atorvastatin Calcium (Lipitor) 40 mg DAILY PO Last administered on 07/11/17 08:33; Start 07/08/17 at 09:00 Losartan Potassium (Cozaar) 25 mg DAILY PO Last administered on 07/11/17 08: 33; Start 07/08/17 at 09:00 Vancomycin HCl 1000 mg/Sodium Chloride 250 ml @ 250 mls/hr Q12H IV Last administered on 07/11/17 02:09; Start 07/08/17 at 15:00 Lactated Ringer's 1,000 ml @ 30 mls/hr Q24H PRN IV SEE LABEL COMMENTS Last administered on 07/09/17 07:00; Start 07/09/17 at 04:30; Stop 07/12/17 at 04 :29 Sodium Chloride 500 ml @ 30 mls/hr [id number] PRN IV SEE LABEL COMMENTS; Start at 04:30; Stop 07/12/17 at 04:29 Metoprolol Tartrate (Lopressor) 25 mg [employer]AN [employer]IST PRN PO SEE LABEL COMMENTS; Start 07/09/17 at 04:30; Stop 07/12/17 at 04:29 Povidone Iodine (Betadine 5% Antisepsis Kit) 1 applic [employer]IST PRN EACH NARE SEE LABEL COMMENTS; Start 07/09/17 at 04:30; Stop 07/12/17 at 04:29 Chlorhexidine Gluconate (Chlorhexidine 2% Cloth) 3 pack [employer]IST PRN TOPICAL SEE LABEL COMMENTS; Start 07/09/17 at 04:30; Stop 07/12/17 at 04:29 Insulin Human Regular (NovoLIN R INJ) See Protocol Table ... [employer]IST PRN SQ SEE PROTOCOL TABLE; Start 07/09/17 at 04:30; Stop 07/12/17 at 04:29 Bupivacaine HCl (Marcaine Pf 0.5% Inj) 30 ml STK-MED ONCE .ROUTE Last administered on 07/09/17 07:46; Start 07/09/17 at 07:11; Stop 07/09/17 at 07 :12; Status DC Lidocaine HCl (Xylocaine 1% Inj (50 ml)) 50 ml STK-MED ONCE .ROUTE ; Start at 07:11; Stop 07/09/17 at 07:12; Status DC Sodium Chloride (NS Flush) 2 ml UNSCH PRN IV FLUSH FLUSH AFTER USING IV ACCESS ; Start 07/09/17 at 08:30 Sodium Chloride (NS Flush) 2 ml BID IV FLUSH Last administered on 07/11/17 08 :34; Start 07/09/17 at 09:00 Miscellaneous Information (Post-op Orders (for Pharmacy)) STAT ONCE XX ; Start 07/09/17 at 08:30; Stop 07/09/17 at 08:37; Status DC Ibuprofen (Motrin) 400 mg Q6H PRN PO PAIN SCALE 1 TO 2; Start 07/09/17 at 09: 00 Acetaminophen/ Hydrocodone Bitart ([place] 5-325 Mg) 1 tab Q4H PRN PO PAIN SCALE 3 TO 5 Last administered on 07/11/17 05:31; Start 07/09/17 at 09:00 Hydromorphone HCl (Dilaudid Pf Inj) 1 mg Q3H PRN IV PUSH BREAKTHROUGH PAIN; Start 07/09/17 at 09:00 Hydromorphone HCl (Dilaudid) 2 mg Q4H PRN PO PAIN SCALE 6 TO 10; Start at 09:00 Naloxone HCl (Narcan Inj) 0.4 mg UNSCH PRN IV PUSH SEE LABEL COMMENTS; Start 07/09/17 at 08:30 Miscellaneous Information ALL NURSING DEPARTME... UNSCH PRN .XX SEE LABEL COMMENTS; Start 07/09/17 at 08:23; Stop 07/10/17 at 08:22; Status DC Heparin Sodium (Porcine) (Heparin Inj) 5,000 units Q12HR SQ Last administered on 07/11/17 08:33; Start 07/10/17 at 21:00 Exam-Podiatry Constitutional General appearance: comfortable Nutritional status: normal Orientation: alert and oriented x3 Dermatological Exam Skin Temp - Right: Within Normal Limits Skin Texture - Right: Within Normal Limits Skin Elasticity - Right: Within Normal Limits Skin Tugor - Right: Within Normal Limits Hair Growth - Right: Within Normal Limits Pigmentation - Right: Within Normal Limits Skin Temp - Left: Within Normal Limits Skin Texture - Left: Within Normal Limits Skin Elasticity - Left: Within Normal Limits Skin Tugor - Left: Within Normal Limits Hair Growth - Left: Within Normal Limits Pigmentation - Left: Within Normal Limits Other: Scars, Surgery,Injury Dressing change was performed under aseptic condition. Wound edges are well coapted. Sutures in place. No signs of infection or cellulitis. Minimal edema noted. Vascular/Lymphatic Exam R Dorsails Pedis: Palpable L Dorsails Pedis: Palpable R Posterior Tibial: Palpable L Posterior Tibial: Palpable Neurologic Exam Present on right: Paraesthesia Musculoskeletal Exam Details Status post right hallux amputation Muscle Strength Dorsiflexion (Right): Normal Plantarflexion (Right): Normal Inversion (Right): Normal Eversion (Right): Normal Digital (Right): Normal Dorsiflexion (Left): Normal Plantarflexion (Left): Normal Inversion (Left): Normal Eversion (Left): Normal Digital (Left): Normal Foot Range of Motion Dorsiflexion (Right): Normal Plantarflexion (Right): Normal Inversion (Right): Normal Eversion (Right): Normal Digital (Right): Normal Dorsiflexion (Left): Normal Plantarflexion (Left): Normal Inversion (Left): Normal Eversion (Left): Normal Digital (Left): Normal Assessment & Plan Diagnosis: (1) Osteomyelitis of toe of right foot ICD Codes: M86.9 - Osteomyelitis, unspecified Status: Resolved (2) Cellulitis of great toe of right foot ICD Codes: L03.031 - Cellulitis of right toe Status: Resolved A/P PLAN: Dressing change performed under aseptic conditions. Patient to wear postop shoe at all times. No bath or shower. Okay to discharge from a podiatry standpoint. Follow-up in my office on Wednesday. Patient seen with Jack Donald DPM Jul 11, 2017 11:14
[2017-07-11 12:00] VITALS: BP 104/60; PULSE 89; RESP 20; TEMP 98.3; O2SAT 94
[2017-07-11 13:30] VITALS: O2SAT 96
[2017-07-11 16:00] VITALS: BP 114/73; PULSE 69; RESP 20; TEMP 98.5; O2SAT 96
[2017-07-12] MEDS ORDERED: PHARMACY ORDERED LAB ONE (02:45)
== END 2017-07-11 16:41 | disposition home or self-care (01) | DRG 854 ==
LOC: N04B 13:50
PROVIDERS: ADMIT Internal Medicine; ATTEND Internal Medicine
PROC: 0Y6P0Z0 Detachment at Right 1st Toe, Complete, Open Approach (ICD-10-PCS; principal; 2017-07-09 07:27)
DX: A41.9 Sepsis, unspecified organism (principal); I96 Gangrene, not elsewhere classified; L03.115 Cellulitis of right lower limb; M86.9 Osteomyelitis, unspecified; L03.031 Cellulitis of right toe; I10 Essential (primary) hypertension; E78.5 Hyperlipidemia, unspecified; N40.0 Benign prostatic hyperplasia without lower urinary tract symptoms; R21 Rash and other nonspecific skin eruption; Z79.899 Other long term (current) drug therapy
CPT/HCPCS: 71020; 73630; 73720; 80053; 80202; 83735; 85025; 85610; 85652; 86140; 87040; 88305; 88311; 93005; 93922; A9579; J0744; J1644; J2250; J2370; J2543; J3010; J3370; J7050; J7120; L3260